=== PATIENT | female | born 1975 | race Caucasian/White ===

== ENCOUNTER 2016-03-28 13:07 | Emergency (ER) | payer OTHER ==
[2016-03-28] MEDS ORDERED: NS 0.9% 1000 ML* 1,000 ML IV ONE ×2 (13:21→13:49)
[2016-03-28] MEDS ORDERED: Acetaminophen TAB* 325 MG PO ONE (13:21)
[2016-03-28] MEDS ORDERED: oxyCODONE/Acetamin 5/325 MG* TAB PO ONE (14:17)
[2016-03-28 14:20] LABS: Hematocrit 26 % (35-47); Hemoglobin 8.2 g/dl (12.0-16.0); Mean Corpuscular HGB Conc 32 g/dl (31-36); Mean Corpuscular Hemoglobin 26 pg (27-31); Mean Corpuscular Volume 80 fL (80-97); Mean Platelet Volume 8 um3 (7.4-10.4); Red Blood Count 3.17 10^6/ul (4.0-5.4); Red Cell Distribution Width 15 % (10.5-15); White Blood Count 13.6 10^3/ul (3.5-10.8)
[2016-03-28 14:31] LABS: ALT 10 U/L (7-52); AST 16 U/L (13-39); Albumin 3.4 g/dL (3.2-5.2); Alkaline Phosphatase 118 U/L (34-104); Anion Gap 10 mmol/L (2-11); BUN/Creatinine Ratio 19.1 (8-20); Blood Urea Nitrogen 9 mg/dL (6-24); C Reactive Protein 75.58 mg/L (< 5.00); CO2 Carbon Dioxide 23 mmol/L (22-32); Chloride 97 mmol/L (101-111); EGFR African American 190.7 (>60); EGFR Non-African American 148.3 (>60); Globulin 3.2 g/dL (2-4); Glucose 83 mg/dL (70-100); Lipase < 10 U/L (11.0-82.0); Potassium 3.8 mmol/L (3.5-5.0); Sodium 130 mmol/L (133-145); Total Protein 6.6 g/dL (6.4-8.9)
[2016-03-28 15:40] VITALS: BP 110/60
--- NOTE | 2016-03-29 09:17 | ED ---
Olga Mena Matthew, scribed for Mahendra Walls MD on 03/28/16 at 1340 . Back Pain - HPI Summary HPI Summary: A 40 y/o 33 week female presents to the ED with sudden right hip pain since this morning. The pain started while the patient was getting out of bed. The pain is rated 10/10 in severity and does not radiate down the leg. The pain is worse with movement. Associated symptoms include numbness of the right greater toe. The patient denies trauma, fever, chills, urinary symptoms, diaphoresis, and vaginal bleeding. She has a Hx of back pain. PMHx of fibromyalgia. - History of Current Complaint Chief Complaint: EDBackInjuryPain Stated Complaint: HIP PAIN Time Seen by Provider: 03/28/16 13:20 Hx Obtained From: Patient Hx Last Menstrual Period: currently menstruating Onset/Duration: Sudden Onset, Lasting Hours, Still Present Onset/Duration: Started Hours Ago, Atraumatic, Still Present Timing: Constant Back Pain Location: Is Discrete @ - right hip Severity Initially: Moderate Severity Currently: Moderate Pain Intensity: 10 Pain Scale Used: 0-10 Numeric Aggravating Symptom(s): Movement Alleviating Symptom(s): Nothing Associated Signs And Symptoms: Positive: Numbness - right greater toe - Allergies/Home Medications Allergies/Adverse Reactions: Allergies Allergy/AdvReac Type Severity Reaction Status Date / Time Penicillins [PCN] Allergy Severe Hives Verified 03/04/16 17:27 Sulfamethoxazole Allergy Unknown Verified 03/04/16 17:27 w/Trimethoprim Reaction [From Bactrim] Details PMH/Surg Hx/FS Hx/Imm Hx Endocrine/Hematology History: Denies: Hx Diabetes Musculoskeletal History: Reports: Hx Fibromyalgia, Hx Scoliosis Neurological History: Reports: Hx Headaches - MIGRAINES, Other Neuro Impairments /Disorders - FIBROMAYALGIA Psychiatric History: Reports: Hx Anxiety, Hx Depression, Hx Post Traumatic Stress Disorder - per pt records, Hx Community Mental Health Tx - has seen therapist in the past, Hx Substance Abuse - pt notes remote hx of ETOH Infectious Disease History: No Infectious Disease History: Denies: History Other Infectious Disease, Traveled Outside the [place] in Last 30 Days - Family History Known Family History: Positive: Other - Fibromyalgia - Social History Alcohol Use: Rare Hx Substance Use: Yes - Hx drug abuse Substance Use Type: Reports: None, Prescribed Substance Use Comment - Amount & Last Used: pt takes reguarly scheduled dose prescribed by PCP Smoking Status (MU): Light Every Day Tobacco Smoker Type: Cigarettes Amount Used/How Often: 1/2 PPD Length of Time of Smoking/Using Tobacco: 20 YRS Have You Smoked in the Last Year: Yes Review of Systems Constitutional: Negative Negative: Fever, Chills, Skin Diaphoresis Eyes: Negative ENT: Negative Cardiovascular: Negative Respiratory: Negative Gastrointestinal: Negative Genitourinary: Negative Positive: no symptoms reported Positive: Myalgia - right hip pain Skin: Negative Positive: Numbness - right greater toe Positive: Anxious All Other Systems Reviewed And Are Negative: Yes Physical Exam - Summary Physical Exam Summary: GENERAL: Awake, alert, oriented, moderate distress, the patient is covered in pockmarks HEENT: Head is normocephalipolc, atraumatic, anicteric sclera, clear conjunctiva , mucous membranes moist, no erythema, no discharge, no lesions, neck is supple , trachea is midline, no JVD CARDIAC: Regular rhythm and tachycardic, S1, S2, no rub, no murmur, no gallop, 2 + radial and pedal pulses bilaterally RESPIRATORY: Clear to auscultation bilaterally with no rales, rhonchi, or wheezes, non-tender ABDOMEN: Bowel sounds positive, no bruit, soft, non-tender, no CVA tenderness EXTREMITIES: No edema, warm, dry, moving all extremities in a grossly normal manner, the patient has positional back pain, negative straight leg test, no tenderness to palpation, right lower back spasm, normal rectal tone NEUROLOGICAL: Mood is appropriate, moving all extremities in a grossly normal manner, sensation in the LE and normal DTR, normal strength Triage Information Reviewed: Yes Vital Signs On Initial Exam: Initial Vitals Temp Pulse Resp BP Pulse Ox 98.4 F 98 18 138/68 100 03/28/16 13:09 03/28/16 13:09 03/28/16 13:09 03/28/16 13:09 03/28/16 13:09 Vital Signs Reviewed: Yes Diagnostics - Vital Signs Vital Signs Temp Pulse Resp BP Pulse Ox 03/28/16 13:09 98.4 F 98 18 138/68 100 - Laboratory Lab Results: Lab Results 03/28/16 03/28/16 03/28/16 Range/Units 14:10 14:10 14:10 WBC 13.6 H (3.5-10.8) 10^3/ul RBC 3.17 L (4.0-5.4) 10^6/ul Hgb 8.2 L (12.0-16.0) g/dl Hct 26 L (35-47) % MCV 80 (80-97) fL MCH 26 L (27-31) pg MCHC 32 (31-36) g/dl RDW 15 (10.5-15) % Plt Count 318 (150-450) 10^3/ul MPV 8 (7.4-10.4) um3 Neut % (Auto) 88.4 H (38-83) % Lymph % (Auto) 5.8 L (25-47) % Holt % (Auto) 5.6 (1-9) % Eos % (Auto) 0 (0-6) % Baso % (Auto) 0.2 (0-2) % Absolute Neuts (auto) 12.0 H (1.5-7.7) 10^3/ul Absolute Lymphs (auto) 0.8 L (1.0-4.8) 10^3/ul Absolute Monos (auto) 0.8 (0-0.8) 10^3/ul Absolute Eos (auto) 0 (0-0.6) 10^3/ul Absolute Basos (auto) 0 (0-0.2) 10^3/ul Absolute Nucleated RBC 0 10^3/ul Nucleated RBC % 0 INR (Anticoag Therapy) 0.91 (0.89-1.11) Sodium 130 L (133-145) mmol/L Potassium 3.8 (3.5-5.0) mmol/L Chloride 97 L (101-111) mmol/L Carbon Dioxide 23 (22-32) mmol/L Anion Gap 10 (2-11) mmol/L BUN 9 (6-24) mg/dL Creatinine 0.47 L (0.51-0.95) mg/dL Est GFR ( Amer) 190.7 (>60) Est GFR (Non-Af Amer) 148.3 (>60) BUN/Creatinine Ratio 19.1 (8-20) Glucose 83 (70-100) mg/dL Lactic Acid (0.5-2.0) mmol/L Calcium 9.0 (8.6-10.3) mg/dL Total Bilirubin 0.40 (0.2-1.0) mg/dL AST 16 (13-39) U/L ALT 10 (7-52) U/L Alkaline Phosphatase 118 H (34-104) U/L C-Reactive Protein 75.58 H (< 5.00) mg/L Total Protein 6.6 (6.4-8.9) g/dL Albumin 3.4 (3.2-5.2) g/dL Globulin 3.2 (2-4) g/dL Albumin/Globulin Ratio 1.1 (1-3) Lipase < 10 L (11.0-82.0) U/L 03/28/16 Range/Units 14:10 WBC (3.5-10.8) 10^3/ul RBC (4.0-5.4) 10^6/ul Hgb (12.0-16.0) g/dl Hct (35-47) % MCV (80-97) fL MCH (27-31) pg MCHC (31-36) g/dl RDW (10.5-15) % Plt Count (150-450) 10^3/ul MPV (7.4-10.4) um3 Neut % (Auto) (38-83) % Lymph % (Auto) (25-47) % Holt % (Auto) (1-9) % Eos % (Auto) (0-6) % Baso % (Auto) (0-2) % Absolute Neuts (auto) (1.5-7.7) 10^3/ul Absolute Lymphs (auto) (1.0-4.8) 10^3/ul Absolute Monos (auto) (0-0.8) 10^3/ul Absolute Eos (auto) (0-0.6) 10^3/ul Absolute Basos (auto) (0-0.2) 10^3/ul Absolute Nucleated RBC 10^3/ul Nucleated RBC % INR (Anticoag Therapy) (0.89-1.11) Sodium (133-145) mmol/L Potassium (3.5-5.0) mmol/L Chloride (101-111) mmol/L Carbon Dioxide (22-32) mmol/L Anion Gap (2-11) mmol/L BUN (6-24) mg/dL Creatinine (0.51-0.95) mg/dL Est GFR ( Amer) (>60) Est GFR (Non-Af Amer) (>60) BUN/Creatinine Ratio (8-20) Glucose (70-100) mg/dL Lactic Acid 0.9 (0.5-2.0) mmol/L Calcium (8.6-10.3) mg/dL Total Bilirubin (0.2-1.0) mg/dL AST (13-39) U/L ALT (7-52) U/L Alkaline Phosphatase (34-104) U/L C-Reactive Protein (< 5.00) mg/L Total Protein (6.4-8.9) g/dL Albumin (3.2-5.2) g/dL Globulin (2-4) g/dL Albumin/Globulin Ratio (1-3) Lipase (11.0-82.0) U/L Result Diagrams: 03/28/16 14:10 03/28/16 14:10 Lab Statement: Any lab studies that have been ordered have been reviewed, and results considered in the medical decision making process. Back Pain Course/Dx - Course Course Of Treatment: 33 week female present with right positional back pain, no vag bleed or discharge, + movments, normal bowel and bladder habbits. nontender abd, no focal neuro deficits. abnormal hg, discussed with Dr. Arenas- he believes hg and crp are normal associated findings, encourage iron supplement. OB to follow closely - Diagnoses Provider Diagnoses: Anemia during , Back pain Discharge - Discharge Plan Condition: Stable Disposition: HOME Patient Education Materials: Anemia (ED), Back Pain (ED) Referrals: Laura Naidu MD [Primary Care Provider] - Radha Arenas MD [Medical Doctor] - Additional Instructions: Please follow-up with your primary care physician and [facility] in two days. The documentation as recorded by the Olga dahl Matthew accurately reflects the service I personally performed and the decisions made by me, Mahendra Walls MD.
== END 2016-03-28 15:39 | disposition home or self-care (01) ==
LOC: ED 13:07
DX: O99.013 Anemia complicating pregnancy, third trimester (principal); Z3A.33 33 weeks gestation of pregnancy; M54.9 Dorsalgia, unspecified; M25.551 Pain in right hip; R20.0 Anesthesia of skin
CPT/HCPCS: 36415; 80053; 83605; 83690; 85025; 85610; 86140; 96360; 99282; A9270-GY

== ENCOUNTER 2016-03-29 14:30 | Inpatient (IN) | payer OTHER ==
[2016-03-29 16:17] LABS: ROM Internal QC QC Line Present
[2016-03-29] MEDS ORDERED: Haloperidol TAB* 2 MG PO PRN (16:20)
--- NOTE | 2016-03-29 16:28 | PN ---
Progress Note - Progress Note Note: Received call from OBGYN doctor reporting of what appears to be tactile hallucinations in the context of Cocain withdrawal. Also requested a psychiatric consult when she is admitted to OBGYN/[facility] sometimes tomorrow.
[2016-03-29] MEDS ORDERED: Morphine VIAL* 10 MG/ML 1 ML VIAL IM ONE (17:45)
[2016-03-29] MEDS ORDERED: Morphine INJ* 10 MG/ML 1 ML CARPUJECT ONE (17:58)
[2016-03-29] MEDS ORDERED: Vancomycin(*) 1,000 MG in NS 0.9% 250 ML* 250 ML IVPB ONE (18:00)
[2016-03-29] MEDS ORDERED: Acetaminophen TAB* 325 MG ONE (18:44)
[2016-03-29] MEDS: Acetaminophen TAB* 325 MG PO PRN (18:46)
--- NOTE | 2016-03-29 19:04 | PN ---
Hospitalist Progress Note . HOSPITALIST PROCEDURE NOTE: CENTRAL LINE Discussed case at length with Dr. Arenas, OB-BLANKING PRESS OPERATOR Attending. Indication present for central line: multiple failed peripheral line attempts / no PICC service / urgent need for multiple IV agents, phlebotomy/blood cultures Discussed with patient, who agreed and consented based on risks & benefits explained. Labs reviewed (no coagulopathy noted). Materials collected and room set up Patient positioned and target site sterilized in the usual fashion with shoulders back and head down (reverse Trendelenburg position) Completed physician-led time out reviewing patient name, procedure, indications , laterality, goals, etc. Site anesthetized with 2% lidocaine in usual fashion Larger finder needle delivered deeper lidocaine and got drawback (flash) from L subclavian vein (characteristic deep red / venous color noted) Wire inserted by Seldinger technique. Opening cut with kit-blade (~5 mm) and SQ tissue dilated with kit-dilator. Triple lumen catheter (pre-flushed by dc) inserted over wire with low pressure blood return noted in all ports. Each port flushed and needle-less adaptors applied Line sutured in usual fashion and covered with tegaderm dressing. Stat CXR ordered to r/o pneumothorax and confirm proper line placement. No complications noted at the time of this note.
[2016-03-29 19:42] LABS: Hematocrit 23 % (35-47); Hemoglobin 7.6 g/dl (12.0-16.0); Mean Corpuscular HGB Conc 33 g/dl (31-36); Mean Corpuscular Hemoglobin 26 pg (27-31); Mean Corpuscular Volume 80 fL (80-97); Mean Platelet Volume 9 um3 (7.4-10.4); Red Blood Count 2.94 10^6/ul (4.0-5.4); Red Cell Distribution Width 16 % (10.5-15); White Blood Count 17.5 10^3/ul (3.5-10.8)
[2016-03-29 19:43] LABS: Add Diff/Slide Review? Slide Review Added; Comments Flag Yes
[2016-03-29 19:46] LABS: ALT 10 U/L (7-52); AST 18 U/L (13-39); Albumin 3.1 g/dL (3.2-5.2); Alkaline Phosphatase 119 U/L (34-104); Anion Gap 7 mmol/L (2-11); Blood Urea Nitrogen 5 mg/dL (6-24); CO2 Carbon Dioxide 21 mmol/L (22-32); Calcium 8.7 mg/dL (8.6-10.3); Chloride 96 mmol/L (101-111); EGFR African American 177.6 (>60); EGFR Non-African American 138.1 (>60); Globulin 3.2 g/dL (2-4); Glucose 125 mg/dL (70-100); Potassium 3.3 mmol/L (3.5-5.0); Sodium 124 mmol/L (133-145); Total Protein 6.3 g/dL (6.4-8.9)
[2016-03-29] MEDS ORDERED: NS 0.9% 1000 ML* 1,000 ML IV ONE (19:58)
[2016-03-29] MEDS ORDERED: cefTRIAXone(*) 2 GM in NS 0.9% 100 ML* 100 ML IVPB ONE (20:00)
[2016-03-29 20:03] LABS: Alcohol < 10 mg/dL (<10)
--- NOTE | 2016-03-29 20:24 | RAD ---
INDICATION: Central line placement. COMPARISON: None TECHNIQUE: An AP semierect portable view obtained at 1942 hours is submitted. FINDINGS: Bones/Soft Tissues: There are no acute bony findings. There is a left-sided central venous catheter terminating in the superior vena cava. There is no pneumothorax Cardiomediastinal: The cardiomediastinal silhouette is normal. Lungs: There are no infiltrates. There is no pneumothorax. Incidental note is made of an azygos fissure. Pleura: There are no pleural effusions. Other: None IMPRESSION: LEFT CENTRAL VENOUS CATHETER TERMINATING IN THE SUPERIOR VENA CAVA. LUNGS CLEAR. NO PNEUMOTHORAX.
--- NOTE | 2016-03-29 20:24 | RAD ---
INDICATION: Third trimester . Possible septic right hip COMPARISON: None TECHNIQUE: Informed consent was obtained following explanation of risks and benefits of the procedure. Routine protocol was utilized with shielding. A radiation badge was placed on the patient. The right hip was marked on the skin surface and a routine timeout procedure called. The skin was prepped and draped in usual fashion. Following infiltration with lidocaine for local anesthesia a 22-gauge spinal needle was advanced into the joint space is confirmed using fluoroscopy/anatomic landmarks. A small amount sterile saline was injected in the joint space and aspirated. The aspirate was blood tinged. There is no odor or purulent material identified on inspection at the bedside. This fluid was then sent for Gram stain and C and S. The patient tolerated the procedure well. There are no procedural complications. 1 seconds of fluoroscopy was utilized. IMPRESSION: RIGHT HIP JOINT ASPIRATION WAS PERFORMED. CPT II Codes: 6045F PQRS (Fluoro time doc)
[2016-03-29 20:53] LABS: Benzodiazepine Urine Screen None Detected (None Detect)
[2016-03-29] MEDS: KCL 20 MEQ/100 ML IVPREMIX* 20 MEQ/100 ML BAG IV SCH ×2 (20:55→23:05)
[2016-03-29] MEDS: Morphine INJ* 2 MG/ML 1 ML CARPUJECT IV PRN ×2 (21:25→23:35)
--- NOTE | 2016-03-29 22:15 | CONS ---
CONSULTATION REPORT: DATE OF CONSULTATION: 03/29/16 - ROOM #109 TIME OF CONSULTATION: 5 p.m. REQUESTING PHYSICIAN: Radha Arenas MD REASON FOR CONSULTATION: Suspected right septic hip. HISTORY OF PRESENT ILLNESS: Ms. Reynolds is a 40-year-old female who is 33 weeks and complains of acute right hip pain. The patient was seen in the emergency room yesterday and discharged. She had progressive left hip pain and re- presented with more obvious hip pain characteristic of perhaps a septic hip. Complicating the situation was the patient's ongoing intravenous drug use most recently that day prior to admission and I believe she was injecting cocaine. The patient presents now with low-grade fever, which has been increasing during my evaluation and focal right hip joint pain. The patient has a very tenuous IV access, is in such pain that she cannot provide a clear history. She is accompanied by her mother who states that the hip pain started when she went to cross her legs a day ago and it has progressively gotten worse. Of some concern is the patient's white blood cell count from 03/28/16, which shows a white blood cell count of 13,6K with 88% neutrophils as well as CRP of 75. The patient is not on antibiotics, she has not undergone any hip imaging. The hospitalist service was consulted for further recommendations and assistance in management. PAST MEDICAL HISTORY: Fibromyalgia. ALLERGIES: PENICILLIN/SULFAMETHOXAZOLE with TRIMETHOPRIM (BACTRIM). FAMILY HISTORY: Reviewed but noncontributory. SOCIAL HISTORY: Positive for illicit drug use. Current toxicology is pending but the patient has confirmed cocaine use to the OB team. She has several other children. REVIEW OF SYSTEMS: Positive for fibromyalgia. No history of significant sciatica. No recent hip trauma. No recent falls. PHYSICAL EXAMINATION: On admission, Vital Signs: Temperature initially 103 degrees Fahrenheit, repeat temperature while I was examining the patient was 103. The patient is in significant pain. She is awake, alert, and oriented but not communicative secondary to her exquisite pain. HEENT: Oropharynx is clear. Mucous membranes are moist. Neck: Supple. No elevated JVD. Chest: Clear breath sounds anteriorly and posteriorly. Heart: Tachycardic but no murmurs appreciated. Abdomen is gravid with no organomegaly appreciated but exam difficult secondary to state. Skin: Livedo reticularis noted on lower extremities. Red, somewhat swollen left hip - subjective and difficult to assess on the right side relative to the left. No leg length discrepancy noted. Abduction of the right leg was difficult and the patient did not permit secondary to pain level. Flexion was possible to 10 to 15 degrees, approximately. She has got goo dorsiflexion strength at both ankles and her sensation was intact bilaterally. There was exquisite pain when I touched her hip joint laterally (on the right). I note she was wearing a monitor during the exam. Admission data is largely pending. Blood work was unable to be obtained prior to my evaluation secondary to difficult for overall access despite multiple nursing attempts by different nursing departments at [facility]. IMPRESSION AND RECOMMENDATIONS: Ms. Reynolds is a 40-year-old female, active injection drug use, 33 weeks who has strong likelihood of a right septic hip. The patient has 103 degrees fever as Iexamine her. She has leukocytosis as of yesterday's labs with left shift. She has an elevated CRP. Certainly, she has an infection at play somewhere and given her right hip pain and use of injection drugs, this is worrisome for septic hip. Differential diagnosis is broad, however, and includes endocarditis, epidural abscess and other infections associated with injection drug use. The patient should have her right hip aspirated. Urgent request for radiology guided aspiration is made and that is underway. The patient is going to have urgent central line access during which time she will have an array of lab work accomplished including a CBC, complete metabolic panel, lactic acid, coagulation parameters and so on. The fluid aspirated from her hip will be sent for Gram stain and culture and the patient will receive 6 mg IM morphine now and then IV doses as per the OB team. I informally spoke with Dr. Audrey Gordon who is aware of the patient and a formal ortho consultation will be arranged following the hip aspiration and depending on the fluid characteristics, decisions will be made relative to the need for surgery. With respect to her obstetric situation, I will defer to the OB attending, of course. However, it seems reasonable that if her right hip is floridly infected that she should proceed to surgery and there would not be a contraindication to that from a medical perspective and I will defer to the obstetric considerations if that is needed. The patient is full code. The patient is hemodynamically stable. If there are any signs of severe sepsis , the patient should be moved to the ICU and that was discussed with Dr. Arenas. Right now, I think she is safe on the OB floor, especially if she receives antibiotics imminently. With respect to antibiotics, I have ordered 1 g of vancomycin and 2 g of ceftriaxone to be given following the hip aspiration. This is broad coverage - - including MRSA -- and further antibiotic tailoring will be arranged by the ID cosmetic sales consultant tomorrow morning. Recommend aggressive fluid resuscitation starting with normal saline 1 L bolus followed by 150 cc per hour. Monitor urine output. Follow renal function. TIME SPENT: Total time taken to evaluate Ms. Reynolds was 75 minutes, greater than half the time spent at the bedside going over the clinical situation and communicating my recommendations. I was present alongside of Dr. Radha Arenas and worked in conjunction with him and he is aware of all of these recommendations. Thank you for the opportunity to help Ms. Reynolds in this serious situation. The hospitalist team will continue to follow the patient. We will arrange ID and intensive care unit consultations as need be in the next 24 hours and feel free to call us liberally as needed. [id number]/[facility] #: [id number] [facility] CENTERAmisha
[2016-03-29 22:41] LABS: Budding Yeast Present (Absent); Urine Bacteria Absent (Absent); Urine Bilirubin Negative (Negative); Urine Glucose Negative (Negative); Urine Nitrite Negative (Negative)
[2016-03-30] MEDS: Acetaminophen TAB* 325 MG PO PRN ×2 (00:34→09:41)
[2016-03-30] MEDS: NS 0.9% 1000 ML* 1,000 ML IV SCH ×2 (01:11→07:23)
[2016-03-30] MEDS: Morphine INJ* 2 MG/ML 1 ML CARPUJECT IV PRN ×8 (01:12→14:12)
[2016-03-30] MEDS: KCL 20 MEQ/100 ML IVPREMIX* 20 MEQ/100 ML BAG IV SCH (01:52)
[2016-03-30 06:16] LABS: Hematocrit 22 % (35-47); Hemoglobin 7.1 g/dl (12.0-16.0); Mean Corpuscular HGB Conc 33 g/dl (31-36); Mean Corpuscular Hemoglobin 26 pg (27-31); Mean Corpuscular Volume 80 fL (80-97); Mean Platelet Volume 8 um3 (7.4-10.4); Red Blood Count 2.72 10^6/ul (4.0-5.4); Red Cell Distribution Width 16 % (10.5-15); White Blood Count 13.2 10^3/ul (3.5-10.8)
[2016-03-30 06:37] LABS: Albumin 2.7 g/dL (3.2-5.2); BUN/Creatinine Ratio 7.7 (8-20); Calcium 8.3 mg/dL (8.6-10.3); EGFR African American 169.7 (>60); Globulin 2.8 g/dL (2-4); Potassium 3.3 mmol/L (3.5-5.0); Total Bilirubin 0.3 mg/dL (0.2-1.0); Total Protein 5.5 g/dL (6.4-8.9)
[2016-03-30] MEDS ORDERED: Vancomycin(*) 1,000 MG in NS 0.9% 250 ML* 250 ML IVPB ONE (07:45)
[2016-03-30] MEDS ORDERED: CEFTRIAXONE IVPB SCH (08:00)
[2016-03-30] MEDS ORDERED: NS 0.9% IVPB SCH (08:00)
[2016-03-30 08:10] VITALS: BP 135/78
[2016-03-30] MEDS ORDERED: Vancomycin per Pharmacy* NOTE FOLLOW UP PRN (09:25)
--- NOTE | 2016-03-30 09:27 | RAD ---
Indication: Right hip and lower extremity pain. Duplex Doppler sonography of the deep venous system of the right lower extremity deep venous system was performed. Bilaterally the common femoral veins appear patent and compressible. Right proximal greater saphenous vein, proximal deep femoral vein, femoral vein, popliteal vein, posterior tibial veins and peroneal veins appear patent and compressible. IMPRESSION: NO EVIDENCE OF DEEP VENOUS THROMBOSIS IS IDENTIFIED.
--- NOTE | 2016-03-30 09:56 | ECHO ---
Patient: AZAEL FISHER [facility] Rec#: [id number] : 1975 Date: 03/30/2016 Age: 40y Height: 167.6 cm / 66.0 in Weight: 68 kg / 149.9 lbs Sex: F BSA: 1.77 Room#: 109 Admit Date#: 03/29/2016 Type: Inpatient Referring: Wicho Mo MD Reading: Christian Dorsey DO Rn Endocrinology: Paulette Allison RN RDCS CC: Laura Naidu MD Transthoracic Echocardiogram Indication: Fever, sepsis BP: 137/82 HR: 122 Rhythm: Tachycardia Findings History: IVDA, fibromyalgia, 33 weeks , suspected septic right hip Technical Comments: The study quality is fair. Left Ventricle: The left ventricular chamber size is normal. Mild concentric left ventricular hypertrophy is observed. Global left ventricular wall motion and contractility are within normal limits. There is normal left ventricular systolic function. The estimated ejection fraction is 50-55%. There is no consistent Doppler evidence of clinically significant diastolic dysfunction. Left Atrium: The left atrium is mildly dilated. Right Ventricle: The right ventricular chamber size and systolic function are within normal limits. Right Atrium: The right atrial cavity size is normal. Aortic Valve: The aortic valve is trileaflet. There is no evidence of aortic regurgitation. There is no evidence of aortic stenosis. Mitral Valve: The mitral valve appears normal in structure and function. There is mild to moderate mitral regurgitation. The mechanism is not well appreciated on transthoracic imaging. There is no evidence of mitral stenosis. Tricuspid Valve: The tricuspid valve leaflets are moderately thickened.of the anterior leaflet in some views. There is trace to mild tricuspid regurgitation. Unable to estimate the right ventricular systolic pressure. Pulmonic Valve: The pulmonic valve appears normal. There is a trace pulmonic regurgitation. There is no pulmonic stenosis. Pericardium: There is no significant pericardial effusion. Aorta: There is no dilatation of the ascending aorta. There is no dilatation of the aortic arch. The aortic root is normal in size. Pulmonary Artery: The main pulmonary artery is not well visualized. Venous: The inferior vena cava appears normal in size. There is a greater than 50% respiratory change in the inferior vena cava dimension. Conclusions The left ventricular chamber size is normal. Mild concentric left ventricular hypertrophy is observed. There is normal left ventricular systolic function with an estimated LV ejection fraction of 50-55%. The left atrium is mildly dilated. The right ventricular chamber size and systolic function are within normal limits. There is mild to moderate mitral regurgitation. The mechanism is not well appreciated on transthoracic imaging. The anterior tricuspid valve leaflets/subvalvular apparatus appears moderately thickened in some views. There is no more than trace to mild tricuspid valve regurigation. No prior studies available for comparison at time of interpretation. Ability to estimate LVEF and valvular dysfunction limited by tachycardia at time of examination. Measurements Name Value Normal Range RVDdMajor (2D) 3.4 cm (2.2 - 4.4) RAd ISD 4CH 4.2 cm (3.4 - 4.9) RA (A4C)W 3.4 cm (2.9 - 4.6) IVSd (2D) 1.1 cm (0.6 - 1) LVPWd (2D) 1.1 cm (0.6 - 1) LVIDd (2D) 5.2 cm (3.6 - 5.4) LVIDs (2D) 3.8 cm - LV FS (2D) 27 % (25 - 45) Aortic Annulus 1.7 cm (1.4 - 2.6) Ao root diameter (2D) 2.2 cm (2.1 - 3.5) Ascending Ao 3 cm (2.1 - 3.4) Aortic arch 2.4 cm (1.8 - 3.4) LA dimension (AP) 2D 3.4 cm (2.3 - 3.8) LAd ISD 4CH 4.8 cm (2.9 - 5.3) LA ISD 4CH W 4.9 cm (2.5 - 4.5) Name Value Normal Range LA ESV SP 4CH (A/L) 60 ml - LA ESV SP 2CH (A/L) 60 ml - LA ESV BP (A/L) 63 ml - LA ESV BP (A/L) index 35.7 ml/m2 - LA ESV SP 4CH (MOD) 59 ml - LA ESV SP 2CH (MOD) 59 ml - Name Value Normal Range MV E-wave Vmax 1.7 m/sec - MV deceleration time 163 msec - MV A-wave Vmax 1.6 m/sec - MV E:A ratio 1 ratio - LV lateral e' Vmax 0.11 m/sec - LV E:e' lateral ratio 15.4 ratio - Name Value Normal Range AV Vmax 2.5 m/sec - AV VTI 39 cm - AV peak gradient 25 mmHg - AV mean gradient 15 mmHg - LVOT diameter 1.8 cm - LVOT Vmax 2.2 m/sec - LVOT VTI 31 cm - BANDAR (continuity Vmax) 2.2 cm2 - BANDAR (continuity VTI) 2 cm2 - Name Value Normal Range MV Vmax 2.1 m/sec - MV VTI 38 cm - MV peak gradient 17 mmHg - MV mean gradient 8 mmHg - MV PHT 44 msec - MVA (PHT) 5 cm2 - MVA (continuity VTI) 2 cm2 - Name Value Normal Range IVC diameter 2.1 cm - Name Value Normal Range PV Vmax 1.4 m/sec -
[2016-03-30 13:24] LABS: Body Fluid Appearance Cloudy
[2016-03-30 13:39] LABS: Body Fluid WBC 199 /mcL
[2016-03-30 13:54] LABS: Body Fluid Total Cells Counted 100
--- NOTE | 2016-03-30 14:10 | CONS ---
CONSULTATION REPORT: DATE OF CONSULT: 03/30/16 REQUESTING PHYSICIAN: Dr. Mo. CONSULTING SERVICE: Infectious Disease. REASON FOR CONSULT: Sepsis in . IMPRESSION: 1. One-week right hip pain, pain worse with weightbearing, few days of fevers, chills, and sweats, gram-positive cocci in 1/2 blood culture bottles, PCR pending, with fever, tachycardia, tachypnea, hypoxia. Transthoracic echocardiogram shows thickening of the tricuspid valve. She has severe hip pain with tenderness over the gluteus muscle. She had an aspiration of the hip joint last night which was dry, so I do not think there is a septic hip. She could have a gluteal muscle abscess or septic myositis. She has a right knee small effusion, I am not entirely sure if she has a septic knee, but it is on the differential. With the tricuspid valve thickening and if it ends up being staphylococcus aureus in the blood, she could have a tricuspid valve endocarditis as well. She is hypoxic. Her chest x-ray yesterday showed clear lungs. Developing septic pulmonary emboli would be a consideration if there is tricuspid valve endocarditis. 2. 33 weeks' gestation 3. Injection drug use, in brief remission. 4. PENICILLIN allergy caused hives, tolerating ceftriaxone. RECOMMENDATION: Agree with vancomycin goal trough 15 to 20 and ceftriaxone can decrease to 2 g once a day. We will await the blood culture and PCR from the blood culture as well. Dr. Espino is talking with the [facility] at [facility] for a transfer. If she is not transferred, the next step in evaluation would be an MRI of the pelvis and a transesophageal echocardiogram and aspiration of the right knee joint. HISTORY OF PRESENT ILLNESS: This is a 40-year-old woman with 33 weeks' gestation admitted with right hip pain and fever. She says she was well until about a week ago. She developed a sudden-onset right hip pain which is worse with weightbearing, hard to move, it is worse with movement in bed as well. Three to four days ago, she developed fever, chills, and sweats as well as anorexia. Because of those symptoms, she came into the ER yesterday where she was found to have leukocytosis of 17,000. Her temperature was 102.4. She was started on fluid and antibiotics. She was admitted to the OB floor. Because of severe right hip pain, Dr. Mo was asked to see her. He discussed with Radiology and had an IR- guided aspiration of the joint. There was no fluid obtained. Saline was instilled and reaspirated which showed 1+ neutrophils, no organisms, her cultures negative at 24 hours on essentially no antibiotics at that point. She has ongoing right hip pain which makes it hard for her to move in bed. She does not want to get up. Her right knee has been swollen and stiff for about a month. It comes and goes, swollen more for about a day or two and that seems to get better on its own. She does spend a fair amount of time outdoors, has had some tick bites. She has had no rashes. She has had ongoing fevers and worsening hypoxia. She is getting supplemental oxygen via face mask. She was tachycardic to the 160s, and now down to the 110s with fluids. PAST MEDICAL HISTORY: 1. Injection drug use. 2. Skin picking. 3. Fibromyalgia. MEDICATIONS: 1. Tylenol. 2. Haloperidol. 3. Ceftriaxone 2 g every 12 hours. 4. Vancomycin 1 g every 8 hours. ALLERGIES: PENICILLIN caused hives; BACTRIM, unknown reaction. FAMILY HISTORY: No recurrent infections. SOCIAL HISTORY: She lives in [place] with her sister's [id number]. She has used cocaine recently and injection drugs. She has no sick contacts. REVIEW OF SYSTEMS: All negative except as noted above. PHYSICAL EXAM: Vital Signs: Temperature 101.2, heart rate 120, respiratory rate 20, blood pressure 135/78, O2 sat 100%. General: She is awake and not in distress. Neurologically, she is oriented x3. Follows all commands. Moves all extremities. HEENT: There is no conjunctival hemorrhage. Oropharynx: Without lesions. Neck: Supple without nuchal rigidity. Lymph Nodes: There is no cervical, supraclavicular, inguinal, axillary, or epitrochlear lymphadenopathy. Heart is regular and tachycardic without murmurs. Lungs have decreased breath sounds at the bases bilaterally without wheezes or rales. Abdomen is gravid, is nontender. There are bowel sounds present. Skin: There is no rash or splinter hemorrhages. There are healed areas of skin picking throughout entire body. Musculoskeletal: There is no spine tenderness to palpation. There is right gluteal muscle and SI joint tenderness to palpation. There is no pain with right hip log roll, there is pain with flexion and extension, internal external rotation of the hip. Right knee, there is a small effusion with mild warmth, there is no erythema. There is no other joint synovitis. LABORATORY DATA: White blood cell count 13, hemoglobin 7, platelets 231. Creatinine is 0.5. ALT 12. Urine tox screen shows opiates and cocaine. Please see impressions and recommendations as outlined above which I have discussed with Dr. Espino. Thanks for asking me to see Ms. Reynolds in consultation. [id number]/[facility] #: [id number] MTDD
--- NOTE | 2016-03-30 15:40 | CONS ---
CONSULTATION REPORT: DATE: 03/30/2016. CHIEF COMPLAINT: Right lower extremity pain. HISTORY OF PRESENT ILLNESS: Roopa Reynolds is a 40-year-old woman who is 33 weeks' . Three days ago, she started having pain in her right lower extremity. She does not recall any injuries, she says it is hip pain. She was admitted to Labor and Delivery, unable to bear weight. She was seen by the hospitalist and apparently then taken to Radiology for a hip aspiration. This was done by Dr. Levy yesterday. It did not show return of any significant fluid, but with little fluid there was, was sent for Gram stain and no organisms were seen. The patient has been spiking fevers. She has a positive blood culture for staph. The aquatics director noticed that she had swelling in her knee and I was asked to evaluate the knee and the right lower extremity pain. The patient denies any groin pain. She does admit to low back pain. She denies any numbness or tingling in her right lower extremity. PHYSICAL EXAM: With range of motion of her hip, she complains of marked pain on the lateral aspect of her hip and in her buttock on the right side. With range of motion of her knee at flexion past 90 degrees, she complains of knee pain. She does not actively elevate her right leg when lying in bed because it is too painful. There is no evidence of fluid collection in the area of her tenderness which is on the lateral aspect of her hip and buttock area. There is no erythema or induration. Neurovascular function is intact in her right lower extremity. DIAGNOSTIC STUDIES: No films were done except for a spot film. When the patient was having the hip aspiration, it does not show any significant hip pathology. No other films were done. IMPRESSION: Sepsis with unknown source. PLAN: The patient's knee was aspirated after sterile prep and verbal consent and time-out. Obtained about 4 cc of clear fluid. There was no purulence. The fluid was sent for Gram stain, culture and sensitivity, and cell count, there was some blood tinge, but again no purulent material at all. The patient is being transferred to [facility] for further workup of her sepsis and I will see her in followup as needed. [id number]/[facility] #: [id number] [facility]
[2016-03-30] MEDS ORDERED: Vancomycin(*) 1,000 MG in NS 0.9% 250 ML* 250 ML IVPB SCH (16:00)
[2016-03-31] MEDS ORDERED: Vancomycin Trough Check NOTE FOLLOW UP ONE (07:30)
== END 2016-03-30 14:30 | disposition short-term general hospital (02) | DRG 566 ==
LOC: MCHOBOUT 14:30 → MCHOB 17:50
PROVIDERS: ADMIT Obstetrics & Gynecology; ATTEND Obstetrics & Gynecology
PROC: 4A1HXCZ Monitoring of Products of Conception, Cardiac Rate, External Approach (ICD-10-PCS; principal; 2016-03-29)
PROC: 02HV33Z Insertion of Infusion Device into Superior Vena Cava, Percutaneous Approach (ICD-10-PCS; 2016-03-29)
PROC: 0S993ZX Drainage of Right Hip Joint, Percutaneous Approach, Diagnostic (ICD-10-PCS; 2016-03-29)
PROC: 0S9C3ZX Drainage of Right Knee Joint, Percutaneous Approach, Diagnostic (ICD-10-PCS; 2016-03-30)
DX: O98.813 Other maternal infectious and parasitic diseases complicating pregnancy, third trimester (principal); A41.9 Sepsis, unspecified organism; O99.323 Drug use complicating pregnancy, third trimester; O26.893 Other specified pregnancy related conditions, third trimester; F14.23 Cocaine dependence with withdrawal; R44.2 Other hallucinations; M79.7 Fibromyalgia; R00.0 Tachycardia, unspecified; R06.82 Tachypnea, not elsewhere classified; R09.02 Hypoxemia; M25.461 Effusion, right knee; R63.0 Anorexia; D72.829 Elevated white blood cell count, unspecified; Z3A.33 33 weeks gestation of pregnancy; Z88.0 Allergy status to penicillin; Z88.1 Allergy status to other antibiotic agents; O09.523 Supervision of elderly multigravida, third trimester
CPT/HCPCS: 20610; 36415; 71010; 77002; 80053; 80307; 80320; 81003; 81015; 83605; 84112; 85025; 87040; 87070; 87077; 87150; 87186; 87205; 87640; 87641; 89051; 93005; 93306; A9270-GY; G0480; J0696; J2270; J3370; J3480

== ENCOUNTER 2016-09-26 23:40 | Emergency (ER) | payer OTHER ==
[2016-09-27] MEDS ORDERED: Ketorolac INJ* 60 MG/2 ML VIAL IM ONE (01:07)
[2016-09-27] MEDS ORDERED: Acetaminophen TAB* 325 MG PO ONE (01:08)
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
[2016-09-27] MEDS ORDERED: HYDROcodone/ACETAMIN 5-325 MG* 1 TAB PO ONE (02:21)
[2016-09-27 02:31] VITALS: BP 161/92
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
== END 2016-09-27 02:32 | disposition home or self-care (01) ==
LOC: ED 23:40
DX: S00.83XA Contusion of other part of head, initial encounter (principal); S40.022A Contusion of left upper arm, initial encounter; R51 Headache; R68.84 Jaw pain; Y04.2XXA Assault by strike against or bumped into by another person, initial encounter; Y93.9 Activity, unspecified; Y92.9 Unspecified place or not applicable; F41.9 Anxiety disorder, unspecified; F32.9 Major depressive disorder, single episode, unspecified; Z88.0 Allergy status to penicillin; Z88.2 Allergy status to sulfonamides; Z88.8 Allergy status to other drugs, medicaments and biological substances; F14.90 Cocaine use, unspecified, uncomplicated; F17.210 Nicotine dependence, cigarettes, uncomplicated
CPT/HCPCS: 70486; 93005; 96372; 99282; A9270-GY; J1885

== ENCOUNTER 2016-10-06 22:21 | Emergency (ER) | payer OTHER ==
[2016-10-07] MEDS ORDERED: Ketorolac INJ* 30 MG/ML 1 ML VIAL IV ONE (00:56)
[2016-10-07] MEDS ORDERED: NS 0.9% 1000 ML* 1,000 ML IV ONE (02:54)
[2016-10-07] MEDS ORDERED: Morphine INJ* 4 MG/ML 1 ML SYRINGE IV ONE (02:56)
[2016-10-07 03:38] LABS: Hematocrit 37 % (35-47); Hemoglobin 12.2 g/dl (12.0-16.0); Mean Corpuscular HGB Conc 33 g/dl (31-36); Mean Corpuscular Hemoglobin 28 pg (27-31); Mean Corpuscular Volume 87 fL (80-97); Mean Platelet Volume 8 um3 (7.4-10.4); Red Blood Count 4.28 10^6/ul (4.0-5.4); Red Cell Distribution Width 15 % (10.5-15); White Blood Count 10.5 10^3/ul (3.5-10.8)
[2016-10-07 03:54] LABS: Albumin 3.8 g/dL (3.2-5.2); EGFR African American 111.2 (>60); EGFR Non-African American 86.5 (>60); Globulin 2.8 g/dL (2-4); Potassium 4.2 mmol/L (3.5-5.0); Total Bilirubin 0.2 mg/dL (0.2-1.0); Total Protein 6.6 g/dL (6.4-8.9)
[2016-10-07 05:21] VITALS: BP 158/68
--- NOTE | 2016-10-07 05:49 | ED ---
Henna Mena Rebecca, scribed for Jabier Crowe MD on 10/07/16 at 0052 . HPI Chest Pain - HPI Summary HPI Summary: Pt is a 40 y/o F who presents to ED c/o CP. Pain began 4 days ago and is in the right anterior chest. Pain is present when she is laying flat, moving or breathing. When present, pain is severe, ranked 8/10 and characterized as sharp. Has not taken anything for the pain. Alleviated by sitting up. Additionally c/o nonproductive cough and wheezing. Denies rash, hemoptysis, edema, rhinorrhea, sore throat and abd pain. No prior similar episodes. No recent illness. PMHx HTN, endocarditis. FHx CAD. SHx smoking. - History of Current Complaint Chief Complaint: EDChestWallPain Time Seen by Provider: 10/07/16 00:36 Hx Obtained From: Patient Onset/Duration: Started Days Ago - 4 days ago, Still Present Current Severity: Severe Pain Intensity: 8 Pain Scale Used: 0-10 Numeric Chest Pain Location: Right Anterior Character: Sharp/Stabbing Aggravating Factor(s): Movement, Deep Breaths, Other: - Laying down Alleviating Factor(s): Upright Position Associated Signs and Symptoms: Positive: Nonproductive Cough, Wheezing. Negative: Hemoptysis - Allergy/Home Medications Allergies/Adverse Reactions: Allergies Allergy/AdvReac Type Severity Reaction Status Date / Time Penicillins [PCN] Allergy Severe Hives Verified 07/02/16 10:13 Milnacipran [From Savella] Allergy Unknown Verified 09/27/16 00:11 Reaction Details Pregabalin [From Lyrica] Allergy Swelling Verified 09/27/16 00:11 Sulfamethoxazole Allergy Unknown Verified 07/02/16 10:13 w/Trimethoprim Reaction [From Bactrim] Details PMH/Surg Hx/FS Hx/Imm Hx Endocrine/Hematology History: Denies: Hx Diabetes Cardiovascular History: Reports: Hx Hypertension, Other Cardiovascular Problems/ Disorders - Hx endocarditis Denies: Hx Pacemaker/ICD Respiratory History: Denies: Hx Asthma Musculoskeletal History: Reports: Hx Fibromyalgia, Hx Scoliosis, Other Musculoskeletal History - Osteomyelitis Sensory History: Denies: Hx Hearing Aid Neurological History: Reports: Hx Headaches - MIGRAINES, Other Neuro Impairments /Disorders - FIBROMAYALGIA Psychiatric History: Reports: Hx Anxiety, Hx Depression, Hx Post Traumatic Stress Disorder - per pt records, Hx Community Mental Health Tx - has seen therapist in the past, Hx Substance Abuse - pt notes remote hx of ETOH Denies: Hx Panic Disorder - Surgical History Surgery Procedure, Year, and Place: D&C ;. TUBES IN EARS ; Infectious Disease History: No Infectious Disease History: Denies: History Other Infectious Disease, Traveled Outside the [place] in Last 30 Days - Family History Known Family History: Positive: Cardiac Disease, Other - Fibromyalgia - Social History Alcohol Use: Daily Alcohol Amount: Drinks to excess frequently Hx Substance Use: Yes - Hx drug abuse Substance Use Type: Reports: Cocaine Substance Use Comment - Amount & Last Used: pt takes reguarly scheduled dose prescribed by PCP Smoking Status (MU): Heavy Every Day Tobacco Smoker Type: Cigarettes Amount Used/How Often: 1/2 PPD Length of Time of Smoking/Using Tobacco: 20 YRS Have You Smoked in the Last Year: Yes Review of Systems Negative: Sore Throat, Nasal Discharge Positive: Chest Pain Positive: Cough - nonproductive, Other - Wheezing; Denies hemoptysis Negative: Abdominal Pain Negative: Edema Negative: Rash All Other Systems Reviewed And Are Negative: Yes Physical Exam - Summary Physical Exam Summary: The patient is well-nourished in no acute distress and in no acute pain at rest. it hurts when she sits up. The skin is diaphoretic, warm and skin color reflects adequate perfusion. HEENT: The head is normocephalic and atraumatic. The pupils are equal and reactive. The conjunctivae are clear and without drainage. Nares are patent and without drainage. Mouth reveals moist mucous membranes and the throat is without erythema and exudate. The external ears are intact. The ear canals are patent and without drainage. The tympanic membranes are intact. Neck is supple with full range of motion and non-tender. NO subcutaneous air. Respiratory: Right reproducible chest pain. Lungs are clear to auscultation and breath sounds are symmetrical and equal. No rales, rhonchi or wheezing. Cardiovascular: Hear is regular rate and rhythm. There is no murmur or rub auscultated. There is no peripheral edema and pulses are symmetrical and equal. Abdomen: The abdomen is soft and non-tender. There are normal bowel sounds heard in all four quadrants and there is no organomegaly palpated. Musculoskeletal: There is no back pain noted. Extremities are non-tender with full range of motion. There is good capillary refill. There is no peripheral edema or calf tenderness elicited. Neurological: Patient is alert and oriented to person, place and time. The patient has symmetrical motor strength in all four extremities. Cranial nerves are grossly intact. Deep tendon reflexes are symmetrical and equal in all four extremities. Psychiatric: The patient has an appropriate affect and does not exhibit any anxiety or depression. Triage Information Reviewed: Yes Vital Signs On Initial Exam: Initial Vitals Temp Pulse Resp BP Pulse Ox 98.5 F 84 18 141/92 97 10/06/16 22:22 10/06/16 22:22 10/06/16 22:22 10/06/16 22:22 10/06/16 22:22 Vital Signs Reviewed: Yes - [place] Coma Scale Coma Scale Total: 15 Diagnostics - Vital Signs Vital Signs Temp Pulse Resp BP Pulse Ox 10/07/16 00:30 73 23 138/75 97 10/07/16 00:01 79 21 132/74 97 10/07/16 00:00 76 22 97 10/06/16 23:49 79 24 97 10/06/16 23:42 77 97 10/06/16 23:40 97.5 F 79 18 166/79 98 10/06/16 23:38 166/79 10/06/16 22:22 98.5 F 84 18 141/92 97 - Laboratory Lab Results: Lab Results 10/07/16 10/07/16 10/07/16 Range/Units 03:15 03:15 03:15 WBC 10.5 (3.5-10.8) 10^3/ul RBC 4.28 (4.0-5.4) 10^6/ul Hgb 12.2 (12.0-16.0) g/dl Hct 37 (35-47) % MCV 87 (80-97) fL MCH 28 (27-31) pg MCHC 33 (31-36) g/dl RDW 15 (10.5-15) % Plt Count 299 (150-450) 10^3/ul MPV 8 (7.4-10.4) um3 Neut % (Auto) 52.8 (38-83) % Lymph % (Auto) 40.7 (25-47) % [place] % (Auto) 5.3 (1-9) % Eos % (Auto) 1.1 (0-6) % Baso % (Auto) 0.1 (0-2) % Absolute Neuts (auto) 5.5 (1.5-7.7) 10^3/ul Absolute Lymphs (auto) 4.3 (1.0-4.8) 10^3/ul Absolute Monos (auto) 0.6 (0-0.8) 10^3/ul Absolute Eos (auto) 0.1 (0-0.6) 10^3/ul Absolute Basos (auto) 0 (0-0.2) 10^3/ul Absolute Nucleated RBC 0.01 10^3/ul Nucleated RBC % 0 D-Dimer, Quantitative < 200 (Less Than 230) ng/mL Sodium 138 (133-145) mmol/L Potassium 4.2 (3.5-5.0) mmol/L Chloride 109 (101-111) mmol/L Carbon Dioxide 22 (22-32) mmol/L Anion Gap 7 (2-11) mmol/L BUN 18 (6-24) mg/dL Creatinine 0.75 (0.51-0.95) mg/dL Est GFR ( Amer) 111.2 (>60) Est GFR (Non-Af Amer) 86.5 (>60) BUN/Creatinine Ratio 24.0 H (8-20) Glucose 99 (70-100) mg/dL Lactic Acid (0.5-2.0) mmol/L Calcium 9.0 (8.6-10.3) mg/dL Total Bilirubin 0.20 (0.2-1.0) mg/dL AST 12 L (13-39) U/L ALT 12 (7-52) U/L Alkaline Phosphatase 43 (34-104) U/L Troponin I 0.00 (<0.04) ng/mL B-Natriuretic Peptide ( - 100) pg/mL Total Protein 6.6 (6.4-8.9) g/dL Albumin 3.8 (3.2-5.2) g/dL Globulin 2.8 (2-4) g/dL Albumin/Globulin Ratio 1.4 (1-3) 10/07/16 10/07/16 Range/Units 03:15 03:15 WBC (3.5-10.8) 10^3/ul RBC (4.0-5.4) 10^6/ul Hgb (12.0-16.0) g/dl Hct (35-47) % MCV (80-97) fL MCH (27-31) pg MCHC (31-36) g/dl RDW (10.5-15) % Plt Count (150-450) 10^3/ul MPV (7.4-10.4) um3 Neut % (Auto) (38-83) % Lymph % (Auto) (25-47) % [place] % (Auto) (1-9) % Eos % (Auto) (0-6) % Baso % (Auto) (0-2) % Absolute Neuts (auto) (1.5-7.7) 10^3/ul Absolute Lymphs (auto) (1.0-4.8) 10^3/ul Absolute Monos (auto) (0-0.8) 10^3/ul Absolute Eos (auto) (0-0.6) 10^3/ul Absolute Basos (auto) (0-0.2) 10^3/ul Absolute Nucleated RBC 10^3/ul Nucleated RBC % D-Dimer, Quantitative (Less Than 230) ng/mL Sodium (133-145) mmol/L Potassium (3.5-5.0) mmol/L Chloride (101-111) mmol/L Carbon Dioxide (22-32) mmol/L Anion Gap (2-11) mmol/L BUN (6-24) mg/dL Creatinine (0.51-0.95) mg/dL Est GFR ( Amer) (>60) Est GFR (Non-Af Amer) (>60) BUN/Creatinine Ratio (8-20) Glucose (70-100) mg/dL Lactic Acid 1.1 (0.5-2.0) mmol/L Calcium (8.6-10.3) mg/dL Total Bilirubin (0.2-1.0) mg/dL AST (13-39) U/L ALT (7-52) U/L Alkaline Phosphatase (34-104) U/L Troponin I (<0.04) ng/mL B-Natriuretic Peptide 22 ( - 100) pg/mL Total Protein (6.4-8.9) g/dL Albumin (3.2-5.2) g/dL Globulin (2-4) g/dL Albumin/Globulin Ratio (1-3) Result Diagrams: 10/07/16 03:15 10/07/16 03:15 Lab Statement: Any lab studies that have been ordered have been reviewed, and results considered in the medical decision making process. - Radiology CXR Xray Interpretation: No Acute Changes Radiology Interpretation Completed By: ED Physician - EKG 2346 Cardiac Rate: NL - 75 bpm EKG Rhythm: Sinus Rhythm EKG Interpretation: No STEMI Re-Evaluation - Re-Evaluation First Eval Re-Evaluation Time: 02:50 Change: Unchanged Comment: Still in pain Second Eval Re-Evaluation Time: 04:45 Change: Improved Comment: Discussed CXR, EKG and lab results. Chest Pain Course/Dx - Course Assessment/Plan: Pt fabrizio 40 y/o F who presents to ED c/o right anterior CP for 4 days.Pain is present when she is laying flat, moving or breathing. When present , pain is severe, ranked 8/10 and characterized as sharp. Alleviated by sitting up. Additionally c/o nonproductive cough and wheezing. Denies rash, hemoptysis, edema, rhinorrhea, sore throat and abd pain. No prior similar episodes. No recent illness. PMHx HTN, endocarditis. FHx CAD. SHx smoking. Multiple RNs unable to obtian IV access or draw labs. CXR and EKG reveal no acute findings. Troponin of 0.00. D-Dimer <200. She will be D/C to home with Dx of pleurisy with an Rx for Percocet. She understands and agrees. - Chest Pain Differential Diagnosis/HQI/PQRI: Acute SC, Chest Wall, Lower Respiratory Infection, Pulmonary Embolism, Other: - pneumothorax, pneumonia, - Diagnoses Provider Diagnoses: Pleurisy Discharge - Discharge Plan Condition: Stable Disposition: HOME Prescriptions: oxyCODONE/Acetamin 5/325 MG* [Percocet 5/325 TAB*] 1 tab PO Q6H PRN #20 tab MDD 4 PRN Reason: pain Patient Education Materials: Pleurisy (ED) Referrals: Laura Naidu MD [Primary Care Provider] - 3 Days The documentation as recorded by the Henna dahl Rebecca accurately reflects the service I personally performed and the decisions made by me, Jabier Crowe MD.
--- NOTE | 2016-10-07 07:47 | RAD ---
HISTORY: Right-sided chest pain COMPARISONS: March 29, 2016 VIEWS: 4: Frontal dual-energy and lateral views of the chest. FINDINGS: CARDIOMEDIASTINAL SILHOUETTE: The cardiomediastinal silhouette is normal. FRANCISCO: The francisco are normal. PLEURA: The costophrenic angles are sharp. No pleural abnormalities are noted. LUNG PARENCHYMA: The lungs are clear. Bilateral nipple shadows are noted.. ABDOMEN: The upper abdomen is clear. There is no subphrenic gas. BONES AND SOFT TISSUES: No bone or soft tissue abnormalities are noted. OTHER: None. IMPRESSION: NO ACTIVE CARDIOPULMONARY DISEASE.
== END 2016-10-07 05:22 | disposition home or self-care (01) ==
LOC: ED 22:21
DX: R09.1 Pleurisy (principal); R05 Cough; I38 Endocarditis, valve unspecified; I10 Essential (primary) hypertension; G43.909 Migraine, unspecified, not intractable, without status migrainosus; Z88.0 Allergy status to penicillin; Z88.2 Allergy status to sulfonamides; F41.9 Anxiety disorder, unspecified; F32.9 Major depressive disorder, single episode, unspecified; F17.210 Nicotine dependence, cigarettes, uncomplicated
CPT/HCPCS: 36415; 71020; 80053; 83605; 83880; 84484; 85025; 85379; 93005; 96361; 96374; 96375; 99284; J1885; J2270

== ENCOUNTER 2016-11-05 15:51 | Emergency (ER) | payer OTHER ==
[2016-11-05] MEDS ORDERED: Tetan/Diph/Pertus SYR(Tdap)* 0.5 ML SYR(BOOSTRIX) use SYR IM ONE (17:22)
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
[2016-11-05 17:36] VITALS: BP 157/94
== END 2016-11-05 17:34 | disposition home or self-care (01) ==
LOC: ED 15:51
DX: S81.811A Laceration without foreign body, right lower leg, initial encounter (principal); X58.XXXA Exposure to other specified factors, initial encounter; Y93.9 Activity, unspecified; Y92.9 Unspecified place or not applicable; Z23 Encounter for immunization; I10 Essential (primary) hypertension; M79.7 Fibromyalgia; G43.909 Migraine, unspecified, not intractable, without status migrainosus; F41.9 Anxiety disorder, unspecified; F32.9 Major depressive disorder, single episode, unspecified; Z88.0 Allergy status to penicillin; Z88.2 Allergy status to sulfonamides; F14.90 Cocaine use, unspecified, uncomplicated; F17.210 Nicotine dependence, cigarettes, uncomplicated
CPT/HCPCS: 12002; 90471; 90715; 99281

== ENCOUNTER 2017-01-12 19:50 | Emergency (ER) | payer OTHER ==
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
--- NOTE | 2017-01-12 21:00 | RAD ---
INDICATION: Right rib pain COMPARISON: Chest x-ray October 07, 2016 TECHNIQUE: Multiple views of the ribs were obtained. FINDINGS: Bones: There is no evidence of acute rib fracture. LUNGS: The lungs are clear. There is no pneumothorax. Pleural spaces: There is no evidence of hemothorax. Other: None IMPRESSION: NO ACUTE RIB FRACTURE.
[2017-01-12] MEDS ORDERED: oxyCODONE/Acetamin 5/325 MG* TAB PO ONE (21:16)
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
[2017-01-12 21:55] VITALS: BP 128/72
== END 2017-01-12 21:50 | disposition home or self-care (01) ==
LOC: ED 19:50
DX: S09.90XA Unspecified injury of head, initial encounter (principal); S00.83XA Contusion of other part of head, initial encounter; S29.9XXA Unspecified injury of thorax, initial encounter; R51 Headache; R07.81 Pleurodynia; F17.210 Nicotine dependence, cigarettes, uncomplicated; Y09 Assault by unspecified means; Y93.9 Activity, unspecified; Y92.9 Unspecified place or not applicable
CPT/HCPCS: 70450; 70486; 99282; A9270-GY

== ENCOUNTER 2018-03-18 15:56 | Emergency (ER) | payer OTHER ==
[2018-03-18 16:19] VITALS: BP 143/92
--- NOTE | 2018-03-18 16:21 | UC ---
[facility] HPI - HPI Summary HPI Summary: 42 yo female presents with runny nose and dry cough for 3 days. Cough is getting worse and more frequency - difficulty sleeping due to cough. She has been taking theraflu with no relief. She also says that she has a broken tooth on her right lower side and the nerve is exposed - having significant pain here over the last few days. Is in the process of getting an appointment with her dentist. Denies fever, chills, SOB, rash. She is able to eat and drink, but has pain. - History of Current Complaint Chief Complaint: UCRespiratory Stated Complaint: COUGH,DENTAL Time Seen by Provider: 03/18/18 16:21 Hx Obtained From: Patient Hx Last Menstrual Period: 03/16/18 Onset/Duration: Gradual Onset Severity: Moderate Pain Intensity: 5 Pain Scale Used: 0-10 Numeric - Allergies/Home Medications Allergies/Adverse Reactions: Allergies Allergy/AdvReac Type Severity Reaction Status Date / Time milnacipran [From Savella] Allergy Unknown Verified 03/18/18 16:20 Reaction Details Penicillins Allergy Hives Verified 03/18/18 16:20 pregabalin [From Lyrica] Allergy Swelling Verified 03/18/18 16:20 Sulfa (Sulfonamide Allergy Unknown Verified 03/18/18 16:20 Antibiotics) Reaction Details Home Medications: Home Medications Acetaminophen [Tylophen] 500 mg PO 03/18/18 [History] D-Methorphan/PE/Acetaminophen [Theraflu Severe Cold Mult 20-10-500 mg] 1 marcelle PO 03/18/18 [History] Etonogestrel [Nexplanon] 68 mg IMPLANT 03/18/18 [History] Ibuprofen 800 mg PO 03/18/18 [History] PMH/Surg Hx/FS Hx/Imm Hx - Additional Past Medical History Additional PMH: None - Surgical History Surgical History: Yes Surgery Procedure, Year, and Place: D&C ;. TUBES IN EARS ; - Family History Known Family History: Positive: Cardiac Disease, Other - Fibromyalgia - Social History Occupation: Employed Full-time Lives: With Family Alcohol Use: Rare Alcohol Amount: Drinks to excess frequently Substance Use Type: None Substance Use Comment - Amount & Last Used: pt takes reguarly scheduled dose prescribed by PCP Smoking Status (MU): Light Every Day Tobacco Smoker Type: Cigarettes Amount Used/How Often: 1/2 PPD Length of Time of Smoking/Using Tobacco: 20 YRS Have You Smoked in the Last Year: Yes When Did the Patient Quit Smoking/Using Tobacco: POS PREG TEST Household Exposure Type: Cigarettes - Immunization History Most Recent Influenza Vaccination: n/a Most Recent Tetanus Shot: not sure thinks she is due for one Most Recent Pneumonia Vaccination: n/a Review of Systems All Other Systems Reviewed And Are Negative: Yes Constitutional: Positive: Negative Skin: Positive: Negative Eyes: Positive: Negative ENT: Positive: Dental Pain, Nasal Discharge Respiratory: Positive: Cough Cardiovascular: Positive: Negative Gastrointestinal: Positive: Negative Neurovascular: Positive: Negative Neurological: Positive: Negative Psychological: Positive: Negative Physical Exam - Summary Physical Exam Summary: GENERAL: NAD. WDWN. No pain distress. SKIN: No rashes, sores, lesions, or open wounds. HEENT: Head: AT/NC Eyes: EOM intact. Conjunctiva clear without inflammation or discharge. Ears: Hearing grossly normal. TMs intact, no bulging, erythema, or edema. Nose: Nasal mucosa pink and moist. NTTP maxillary and frontal sinus. Throat: Posterior oropharynx without exudates, erythema, or tonsillar enlargement. Uvula midline. NECK: Supple. Nontender. No lymphadenopathy. CHEST: CTAB. No r/r/w. No accessory muscle use. Breathing comfortably and in no distress. CV: RRR. Without m/r/g. Pulses intact. Cap refill <2seconds NEURO: Alert. PSYCH: Age appropriate behavior. Triage Information Reviewed: Yes Vital Signs: Initial Vital Signs Temp 97.3 F 03/18/18 16:13 Pulse 96 03/18/18 16:13 Resp 18 03/18/18 16:13 BP 143/92 03/18/18 16:13 Pulse Ox 97 03/18/18 16:13 Vital Signs Reviewed: Yes Dental: Positive: Percussion Tenderness @ - tooth 29, Gross Decay/Caries @ - throughout, Dental Fracture @ - Tooth 29. Negative: Abscess @, Cellulitis @, Cervical Lymphadenopathy, Bleeding Dental Complaint Course/Dx - Course Course Of Treatment: Suspect bronchitis/viral illness. No abscess appreciated at tooth. Rx for flonase, tessalon, and lidocaine viscous. F/u with dentist regarding tooth and with PCP if URI symptoms do not improve. - Differential Dx/Diagnosis Provider Diagnosis: Bronchitis, Tooth fracture Discharge - Sign-Out/Discharge Documenting (check all that apply): Patient Departure All imaging exams completed and their final reports reviewed: No Studies - Discharge Plan Condition: Stable Disposition: HOME Prescriptions: Benzonatate CAP* [Tessalon 100 MG CAP*] 100 mg PO TID PRN #21 cap PRN Reason: Cough Fluticasone NASAL SPRAY 50MCG* [Flonase NASAL SPRAY 50MCG*] 2 spray BOTH NARES DAILY #1 btl Lidocaine 2% VISCOUS* [Xylocaine 2% Viscous*] 15 ml SWISH SPIT Q6H PRN #300 ml PRN Reason: Pain Patient Education Materials: Rhinosinusitis (ED), Toothache (ED) Referrals: Laura Naidu MD [Primary Care Provider] - Additional Instructions: If you develop a fever, shortness of breath, chest pain, new or worsening symptoms - please call your PCP or go to the ED. Your blood pressure was high at todays visit. Please see your primary provider within 4 weeks for recheck and re-evaluation. - Billing Disposition and Condition Condition: STABLE Disposition: Home
== END 2018-03-18 16:40 | disposition home or self-care (01) ==
LOC: UCEAST 15:56
DX: S02.5XXA Fracture of tooth (traumatic), initial encounter for closed fracture (principal); J40 Bronchitis, not specified as acute or chronic; F17.210 Nicotine dependence, cigarettes, uncomplicated; Z88.0 Allergy status to penicillin; Z88.2 Allergy status to sulfonamides; Z88.8 Allergy status to other drugs, medicaments and biological substances; X58.XXXA Exposure to other specified factors, initial encounter; Y92.9 Unspecified place or not applicable
CPT/HCPCS: 99212; G0463

== ENCOUNTER 2018-12-05 16:43 | Emergency (ER) | payer OTHER ==
[2018-12-05 16:51] VITALS: BP 154/100
== END 2018-12-05 17:10 | disposition left against medical advice (07) ==
LOC: ED 16:43
DX: Z53.21 Procedure and treatment not carried out due to patient leaving prior to being seen by health care provider (principal); R56.9 Unspecified convulsions; Z88.0 Allergy status to penicillin; Z88.2 Allergy status to sulfonamides; Z88.8 Allergy status to other drugs, medicaments and biological substances
CPT/HCPCS: 99282

== ENCOUNTER 2019-02-08 10:39 | Observation (INO) | payer OTHER ==
--- NOTE | 2019-02-08 10:46 | ED ---
Abdominal Pain/Female - HPI Summary HPI Summary: Patient is a 43 y/o F presenting to the ED via EMS for a chief complaint of constant suprapubic abdominal pain that began one day ago. She rates the pain as 9/10 in severity. Per EMS, patient went to [facility] on 02/08[facility]19 and sent to [facility]. She also complains of nausea, but denies fever, chills, vomiting, diarrhea, constipation, diarrhea, dysuria, hematuria, or vaginal discharge. She is on her menstrual period and has vaginal bleeding which she says is constant despite having an implant. She denies similar abdominal pain in the past. One week ago, the patient was diagnosed with gonorrhea for which she has not received treatment. PMHx is significant for hypertension and hip osteomyelitis. PSHx is significant for a D&C, but she denies abdominal surgeries. Patient admits tobacco use and history of IV drug use, but denies alcohol use. She has not taken her medications as of 02/08/19. Medications reviewed. Allergies noted. - History of Current Complaint Stated Complaint: ABD PAIN PER EMS Hx Obtained From: Patient Hx Last Menstrual Period: 03/16/18 Onset/Duration: Sudden Onset, Lasting Hours, Still Present Timing: Hours Severity Initially: Severe Severity Currently: Severe Pain Intensity: 9 Pain Scale Used: 0-10 Numeric Location: Suprapubic Radiates: No Aggravating Factor(s): Nothing Alleviating Factor(s): Nothing Associated Signs and Symptoms: Positive: Vaginal Bleeding - On her menstrual period, Nausea. Negative: Fever, Constipation, Urinary Symptoms, Vaginal Discharge, Vomiting, Diarrhea Allergies/Adverse Reactions: Allergies Allergy/AdvReac Type Severity Reaction Status Date / Time milnacipran [From Savella] Allergy Unknown Verified 12/05/18 16:50 Reaction Details Penicillins Allergy Hives Verified 12/05/18 16:50 pregabalin [From Lyrica] Allergy Swelling Verified 12/05/18 16:50 Sulfa (Sulfonamide Allergy Unknown Verified 12/05/18 16:50 Antibiotics) Reaction Details Home Medications: Home Medications Cyanocobalamin TAB* [Vitamin B12 TAB*] 1,000 mcg PO DAILY 02/08/19 [History Confirmed 02/08/19] Escitalopram * [Lexapro *] 20 mg PO DAILY 02/08/19 [History Confirmed 02/08/19] Etonogestrel [Nexplanon] 68 mg SUBCUT ONCE 02/08/19 [History Confirmed 02/08/19] Hydrochlorothiazide TAB* [Hydrodiuril TAB*] 12.5 mg PO DAILY 02/08/19 [History Confirmed 02/08/19] Mupirocin 2% OINT* [Bactroban 2 % Oint*] 1 applic TOPICAL TID 02/08/19 [History Confirmed 02/08/19] PMH/Surg Hx/FS Hx/Imm Hx Previously Healthy: Yes Endocrine/Hematology History: Denies: Hx Diabetes Cardiovascular History: Reports: Hx Hypertension, Other Cardiovascular Problems/ Disorders - Hx endocarditis Denies: Hx Hypercholesterolemia, Hx Pacemaker/ICD Respiratory History: Denies: Hx Asthma Musculoskeletal History: Reports: Hx Fibromyalgia, Hx Scoliosis, Other Musculoskeletal History - Osteomyelitis Sensory History: Denies: Hx Legally Blind, Hx Deafness, Hx Hearing Aid Opthamlomology History: Denies: Hx Legally Blind EENT History: Denies: Hx Deafness Neurological History: Reports: Hx Headaches - MIGRAINES, Other Neuro Impairments /Disorders - FIBROMAYALGIA Psychiatric History: Reports: Hx Anxiety, Hx Depression, Hx Post Traumatic Stress Disorder - per pt records, Hx Community Mental Health Tx - has seen therapist in the past, Hx Substance Abuse - pt notes remote hx of ETOH Denies: Hx Panic Disorder - Surgical History Surgical History: Yes Surgery Procedure, Year, and Place: D&C ;. TUBES IN EARS Infectious Disease History: Denies: History Other Infectious Disease - Family History Known Family History: Positive: Cardiac Disease, Other - Fibromyalgia - Social History Occupation: Unemployed Lives: With Family Alcohol Use: Rare Alcohol Amount: Drinks to excess frequently Hx Substance Use: Yes - Hx drug abuse Substance Use Type: Reports: None Substance Use Comment - Amount & Last Used: pt takes reguarly scheduled dose prescribed by PCP Hx Tobacco Use: Yes Smoking Status (MU): Light Every Day Tobacco Smoker Type: Cigarettes Amount Used/How Often: 1/2 PPD Length of Time of Smoking/Using Tobacco: 20 YRS Have You Smoked in the Last Year: Yes Review of Systems Negative: Fever, Chills Positive: Abdominal Pain - Suprapubic, Nausea, Other - Negative constipation. Negative: Vomiting, Diarrhea Positive: other - Positive vaginal bleeding, on her menstrual period. Negative : dysuria, discharge - Vaginal, hematuria All Other Systems Reviewed And Are Negative: Yes Physical Exam - Summary Physical Exam Summary: Constitutional: Well-developed, Well-nourished, Alert. Moderate distress. HENT: Normocephalic; Atraumatic Eyes: Conjunctiva normal Neck: Musculoskeletal ROM normal neck. (-) JVD, (-) Stridor, (-) Tracheal deviation Cardio: Rhythm regular, rate normal, Heart sounds normal; Intact distal pulses; Radial pulses are 2+ and symmetric. (-) Murmur Pulmonary/Chest wall: Effort normal. (-) Respiratory distress, (-) Wheezes, (-) Rales Abd: Soft, (-) Distension, (-) Guarding, (-) Rebound. Diffusely tender, worse in the RLQ. 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 Mild blood in the vaginal vault, CMT but no Chandeliers sign, no adnexal tenderness. Triage Information Reviewed: Yes Vital Signs Reviewed: Yes Procedures - Sedation Patient Received Moderate/Deep Sedation with Procedure: No Diagnostics - Laboratory Result Diagrams: 02/08/19 11:21 02/08/19 11:21 Lab Statement: Any lab studies that have been ordered have been reviewed, and results considered in the medical decision making process. - Radiology Chest X-ray Radiology Interpretation Completed By: Radiologist Summary of Radiographic Findings: Chest X-ray IMPRESSION: NO ACTIVE CARDIOPULMONARY DISEASE IS NOTED. Reviewed by Dr. Menendez. - CT Abdomen/Pelvis CT CT Interpretation Completed By: Radiologist Summary of CT Findings: Abdomen/Pelvis CT IMPRESSION: There is some free fluid surrounding the right ovary. The appendix is normal. Fluid levels are noted in the distal small bowel and in the right colon suggestive of enteritis. Reviewed by Dr. Menendez. - EKG 10:51 Cardiac Rate: Tachycardia - 102 BPM EKG Rhythm: Sinus Tachycardia ST Segment: Normal Ectopy: None Summary of EKG Findings: EKG at 10:51 shows 102 BPM with sinus tachycardia, many baseline artefacts, no obvious STEMI. Reviewed and interpreted by Dr. Menendez. Re-Evaluation - Re-Evaluation First Eval Re-Evaluation Time: 11:24 Change: Unchanged Comment: At 11:24, patient is having an ultrasound and an IV line. Abdominal Pain Fem Course/Dx - Course Course Of Treatment: Patient is here with severe abdominal pain in the setting of known, untreated gonorrhea. Patient was diffusely tender but worse in the right lower quadrant. Patient had bloodwork performed which showed a leukocytosis of 19 and a normal lactate. Patient had a pelvic exam which showed CMT but no chandelier sign. Patient had a CT scan which showed fluid around the right ovary likely PID in nature. Patient was given cefoxitin and doxycycline. Patient was admitted to the gynecology service - Diagnoses Provider Diagnoses: PID (pelvic inflammatory disease), Fever, Leukocytosis, RLQ abdominal pain - Provider Notifications Discussed Care Of Patient With: Mahendra Barrera - At 13:24, I discussed the patients case with Dr. Barrera who will admit the patient with a diagnosis of leukocytosis, fever, RLQ abdominal pain, and PID. Time Discussed With Above Provider: 13:24 Instructed by Provider To: Admit As Inpatient Discharge ED - Sign-Out/Discharge Documenting (check all that apply): Patient Departure - Admit - Discharge Plan Condition: Stable Disposition: ADMITTED TO [facility] - Billing Disposition and Condition Condition: STABLE Disposition: Admitted to [facility] - Attestation Statements Document Initiated by Li: Yes Documenting Scribe: Kalina Garcia Provider For Whom Li is Documenting (Include Credential): Nathaniel Menendez MD Scribe Attestation: Kalina Mena, scribed for Nathaniel Menendez MD on 02/08/19 at 2025. Scribe Documentation Reviewed: Yes Provider Attestation: The documentation as recorded by the Kalina dahl accurately reflects the service I personally performed and the decisions made by , Nathaniel Menendez MD Status of Scribe Document: Viewed
[2019-02-08] MEDS ORDERED: Morphine 4 MG/ML VIAL (1 ml) 4 MG/ML VIAL IV ONE (10:47)
[2019-02-08] MEDS ORDERED: Ondansetron INJ* 2 MG/ML VIAL IV ONE (10:47)
[2019-02-08] MEDS ORDERED: NS 0.9% 1000 ML** 1,000 ML IV ONE (10:47)
[2019-02-08] MEDS ORDERED: Acetaminophen TAB* 325 MG PO ONE (10:47)
[2019-02-08 11:36] LABS: ABS Lymphocytes 0.9 10^3/ul (1.0-4.8); ABS Monocytes 0.3 10^3/ul (0-0.8); ABS Neutrophils 17.8 10^3/ul (1.5-7.7); Hematocrit 39 % (35-47); Lymphocyte % 4.9 %; Mean Corpuscular HGB Conc 33 g/dL (31-36); Mean Corpuscular Hemoglobin 29 pg (27-31); Mean Corpuscular Volume 89 fL (80-97); Mean Platelet Volume 8.3 fL (7.4-10.4); Platelet Count 285 10^3/uL (150-450); Red Blood Count 4.43 10^6 /uL (3.70-4.87); Red Cell Distribution Width 14 % (10-15); White Blood Count 19.1 10^3/uL (3.5-10.8)
[2019-02-08 11:53] LABS: ALT 12 U/L (7-52); AST 17 U/L (13-39); Albumin 4.3 g/dL (3.2-5.2); Albumin/Globulin Ratio 1.3 (1-3); Alkaline Phosphatase 59 U/L (34-104); Anion Gap 8 mmol/L (2-11); BUN/Creatinine Ratio 12.3 (8-20); Blood Urea Nitrogen 9 mg/dL (6-24); C Reactive Protein 174.58 mg/L (<8.01); CO2 Carbon Dioxide 26 mmol/L (22-32); Calcium 9.8 mg/dL (8.6-10.3); Chloride 98 mmol/L (101-111); EGFR African American 106.3 (>60); EGFR Non-African American 87.9 (>60); Globulin 3.4 g/dL (2-4); Glucose 106 mg/dL (70-100); Potassium 3.8 mmol/L (3.5-5.0); Sodium 132 mmol/L (135-145); Total Protein 7.7 g/dL (6.4-8.9)
[2019-02-08] MEDS ORDERED: HYDROmorphone INJ* 0.5 MG/0.5 ML SYRINGE IV ONE (11:56)
[2019-02-08] MEDS ORDERED: Iohexol 300* (CONTRAST) 10 ML SDV IV ONE (11:58)
[2019-02-08 12:01] LABS: HCG Pregnancy < 0.60 mIU/mL
[2019-02-08 12:25] LABS: INR 1.28 (0.82-1.09)
[2019-02-08] MEDS ORDERED: Ibuprofen TAB* 600 MG PO ONE (12:53)
[2019-02-08 13:01] LABS: Urine Appearance Cloudy; Urine Bilirubin Negative (Negative); Urine Blood 3+ (Negative); Urine Color Yellow; Urine Glucose Negative (Negative); Urine Ketones Trace (Negative); Urine Nitrite Negative (Negative); Urine Protein Negative (Negative); Urine Specific Gravity 1.021 (1.010-1.030); Urine Urobilinogen Negative (Negative)
[2019-02-08 13:05] LABS: Urine Bacteria Absent (Absent); Urine Red Blood Cell 3+(>10/hpf) (Absent); Urine Squamous Epithelial Cell Present (Absent); Urine White Blood Cell Trace(0-5/hpf) (Absent)
[2019-02-08] MEDS ORDERED: ceFOXitin 2 GM IVPREMIX* 2 GM/50 ML BAG IVPB ONE (13:05)
[2019-02-08] MEDS ORDERED: DOXYcycline IV* 100 MG in NS 0.9% 250 ML* 250 ML IVPB ONE (13:05)
[2019-02-08] MEDS ORDERED: Ketorolac INJ* 30 MG/ML 1 ML VIAL IV ONE (13:31)
[2019-02-08] MEDS ORDERED: Naloxone* 0.4 MG/ML 1 ML VIAL IV PUSH PRN (13:58)
[2019-02-08] MEDS ORDERED: Ondansetron INJ* 2 MG/ML VIAL IV PRN (14:04)
[2019-02-08] MEDS ORDERED: ETONOGESTREL 68 MG SUBCUT ONE (14:15)
[2019-02-08] MEDS ORDERED: HYDROmorphone PCA* 20 MG/20 ML PCA.SYRING PCA SCH (15:00)
[2019-02-08] MEDS: Lactated Ringers 1000 ML Bag* 1,000 ML IV SCH (15:47)
[2019-02-08] MEDS: ceFOXitin 2 GM IVPREMIX* 2 GM/50 ML BAG IVPB SCH (17:51)
[2019-02-08] MEDS: Mupirocin 2% OINT* TUBE TOPICAL SCH (22:58)
[2019-02-09] MEDS: ceFOXitin 2 GM IVPREMIX* 2 GM/50 ML BAG IVPB SCH ×4 (00:38→18:11)
[2019-02-09] MEDS: Lactated Ringers 1000 ML Bag* 1,000 ML IV SCH ×2 (05:39→15:28)
[2019-02-09 07:12] LABS: ABS Eosinophils 0.1 10^3/ul (0-0.6); ABS Lymphocytes 1.6 10^3/ul (1.0-4.8); ABS Monocytes 0.5 10^3/ul (0-0.8); ABS Neutrophils 19.9 10^3/ul (1.5-7.7); Eosinophil % 0.4 %; Hematocrit 34 % (35-47); Hemoglobin 11.3 g/dL (12.0-16.0); Lymphocyte % 7.3 %; Mean Corpuscular HGB Conc 33 g/dL (31-36); Mean Corpuscular Hemoglobin 30 pg (27-31); Mean Corpuscular Volume 91 fL (80-97); Mean Platelet Volume 8.6 fL (7.4-10.4); Platelet Count 244 10^3/uL (150-450); Red Blood Count 3.77 10^6 /uL (3.70-4.87); Red Cell Distribution Width 14 % (10-15); White Blood Count 22.2 10^3/uL (3.5-10.8)
[2019-02-09] MEDS ORDERED: Influenza VAC *QUAD* 2019-20* 0.5 ML SYRINGE IM ONE (09:00)
[2019-02-09] MEDS: Mupirocin 2% OINT* TUBE TOPICAL SCH ×3 (09:04→21:31)
[2019-02-09] MEDS: Hydrochlorothiazide TAB* 25 MG PO SCH (09:05)
[2019-02-09] MEDS: Ibuprofen TAB* 800 MG PO PRN ×2 (09:06→21:58)
[2019-02-09] MEDS: Escitalopram * 20 MG TABLET PO SCH (11:01)
--- NOTE | 2019-02-09 11:21 | PN ---
Progress Note - Progress Note Date of Service: 02/09/19 SOAP: Subjective: Pt is a 43 y/o female admitted to [facility] service for suspected PID, positive GC on recent culture. Initially with fever of 103.4 in ED at 103 on 02/08. Also elevated WBC of 19. Pt reports feeling much better today, has now been on IV Antiobiotics since yesterday afternoon. Pt requesting regular diet. Pain has been controlled with [facility]. Objective: [AVSS, afebrile, hemodynamically stable CV: RRR Pulm: non-labored respirations Abd: soft, nd, nttp, no rebound, no guarding] Assessment/plan: [43 y/o with PID, clinically responding well to IV Abx Has been afebrile x 24 hours now, will, continue IV Abx until afebrile x 48 hours. Elevated WBC count noted from 19 -->22.2. Pt is clinically improving though as exhibited by afebrile, benign abdominal exam and pt report of improved pain. Will need PO Doxy x 14 days when stable for discharge. Abdominal exam is benign, no concern for acute abdomen at this time Will DC [facility] and transition to PRN PO oxycodone, ibuprofen and tylenol. OK for regular diet Repeat CBC w/ diff tomorrow AM []
[2019-02-09] MEDS: oxyCODONE TAB* 5 MG TAB PO PRN ×3 (13:06→21:58)
[2019-02-09] MEDS: DOXYcycline IV* 100 MG in NS 0.9% 250 ML* 250 ML IVPB SCH (21:31)
[2019-02-10] MEDS: ceFOXitin 2 GM IVPREMIX* 2 GM/50 ML BAG IVPB SCH ×2 (02:02→08:10)
[2019-02-10] MEDS: Lactated Ringers 1000 ML Bag* 1,000 ML IV SCH (06:09)
[2019-02-10] MEDS: Hydrochlorothiazide TAB* 25 MG PO SCH (08:02)
[2019-02-10] MEDS: Escitalopram * 20 MG TABLET PO SCH (08:02)
[2019-02-10] MEDS: oxyCODONE TAB* 5 MG TAB PO PRN (08:03)
[2019-02-10] MEDS: Ibuprofen TAB* 800 MG PO PRN (08:03)
[2019-02-10] MEDS: DOXYcycline IV* 100 MG in NS 0.9% 250 ML* 250 ML IVPB SCH ×2 (08:03→10:08)
[2019-02-10] MEDS: Mupirocin 2% OINT* TUBE TOPICAL SCH (08:49)
[2019-02-10 09:02] LABS: Hematocrit 31 % (35-47); Hemoglobin 10.3 g/dL (12.0-16.0); Mean Corpuscular HGB Conc 33 g/dL (31-36); Mean Corpuscular Hemoglobin 29 pg (27-31); Mean Corpuscular Volume 88 fL (80-97); Red Blood Count 3.56 10^6 /uL (3.70-4.87); Red Cell Distribution Width 14 % (10-15); White Blood Count 11.3 10^3/uL (3.5-10.8)
[2019-02-10 09:22] LABS: ABS Basophils 0.1 10^3/ul (0-0.2); ABS Eosinophils 0.1 10^3/ul (0-0.6); ABS Lymphocytes 1.3 10^3/ul (1.0-4.8); ABS Monocytes 0.5 10^3/ul (0-0.8); ABS Neutrophils 9.2 10^3/ul (1.5-7.7); Eosinophil % 1.3 %; Lymphocyte % 11.8 %; Platelet Count 238 10^3/uL (150-450)
--- NOTE | 2019-02-10 10:44 | DS ---
DISCHARGE SUMMARY/DISCHARGE NOTE 43 y/o admitted for Pelvic inflammatory disease. On admission patient was febrile with a temperature of 103.4 and found to have a white count of 19. Outside testing was positive for Gonorrhea. Pt was admitted for IV therapy for Pelvic inflammatory disease. On Hospital Day #2 her WBC increased to 22.2, but her clinical presentation improved significantly. On Hospital Day #3 her WBC dropped down to 11 and and her clinical presentation continued to improve. She has remained afebrile x > 48 hours and has exhibited a good response to IV Cefoxitine and Doxycycline. O: AVSS, Afebrile, hemodynamically stable gen: NAD, aaox3 CV: RRR Pulm: CTABL Abd: soft, nd, nttp, no rebound, no guarding Ext: warm, nttp A/P 43 y/o with PID, good response to IV Abx therapy. - Will discharge home with PO Doxycycline 100mg BID x an additional 12 days of therapy for a total of 14 days of therapy. - Follow up in the office within 1-2 weeks Discharge Condition is Stable Prognosis is good Discharge to home Discharge Diagnosis - Gonorrhea, Pelvic Inflammatory disease with good response to IV Abx Anticipated time of discharge is 1230 DO KATHERINE Martinez
[2019-02-10 12:19] VITALS: BP 131/67
[2019-02-13 12:45] LABS: Chlamydia trachomatis NAA Negative (Negative)
[2019-02-13 15:28] LABS: Neisseria gonorrhoeae (GC) NAA Positive (Negative)
== END 2019-02-10 12:20 | disposition home or self-care (01) ==
LOC: ED 10:39 → SSU 13:56
PROVIDERS: ADMIT Obstetrics & Gynecology; ATTEND Obstetrics & Gynecology
DX: A54.24 Gonococcal female pelvic inflammatory disease (principal); N73.9 Female pelvic inflammatory disease, unspecified; N93.9 Abnormal uterine and vaginal bleeding, unspecified; I10 Essential (primary) hypertension; D72.829 Elevated white blood cell count, unspecified; R11.0 Nausea; R50.9 Fever, unspecified; Z97.5 Presence of (intrauterine) contraceptive device; R10.2 Pelvic and perineal pain; R51 Headache; F41.9 Anxiety disorder, unspecified; F32.9 Major depressive disorder, single episode, unspecified; F43.10 Post-traumatic stress disorder, unspecified; F17.210 Nicotine dependence, cigarettes, uncomplicated; Z23 Encounter for immunization; Z79.899 Other long term (current) drug therapy; Z88.0 Allergy status to penicillin
CPT/HCPCS: 36415; 71045; 74177; 80053; 81003; 81015; 83605; 84702; 85025; 85610; 86140; 87040; 87086; 87480; 87491; 87510; 87591; 90471; 90686; 93005; 96361; 96365; 96366; 96367; 96375; 96376; 99285; A9270-GY; G0008; G0378; J0694; J1170; J1885; J2270; J2405; Q9967

== ENCOUNTER 2019-05-01 23:38 | Emergency (ER) | payer SELFPAY ==
[2019-05-01] MEDS ORDERED: Ketorolac INJ* 30 MG/ML 1 ML VIAL IV PUSH ONE (23:54)
--- NOTE | 2019-05-01 23:59 | ED ---
HPI Chest Pain - HPI Summary HPI Summary: This pt is a 43 Y/O F presenting to [facility] with a CC of CP that radiates into her back and is described as pressure and is currently rated an 8/10 in severity. She states that she has had associated abdominal pain with a headache since the onset. She also reports a sore throat, chills, a diffuse rash, and diaphoresis. She states that she had to take a cold bath to alleviate any of her symptoms. She denies any fevers or SOB. She states no aggravating factors. She has a PMHx of HTN, endocarditis, and migraines. She reports a SHx of some cocaine use. - History of Current Complaint Chief Complaint: EDChestPainROMI Time Seen by Provider: 05/01/19 23:48 Hx Obtained From: Patient Hx Last Menstrual Period: 03/16/18 Onset/Duration: Started Hours Ago, Still Present Timing: Constant Initial Severity: Severe Current Severity: Severe Pain Intensity: 8 Pain Scale Used: 0-10 Numeric Chest Pain Location: Diffuse Chest Pain Radiates: Yes Chest Pain Radiates To:: Back Character: Pressure/Squeezing Aggravating Factor(s): Nothing Alleviating Factor(s): Other: - cold shower Associated Signs and Symptoms: Positive: Chest Pain, Chills, Diaphoresis, Abdominal Pain, Other: - diffuse rash. Negative: Shortness of Breath, Fever - Additional Pertinent History Primary Care Physician: [id number] - Allergy/Home Medications Allergies/Adverse Reactions: Allergies Allergy/AdvReac Type Severity Reaction Status Date / Time milnacipran [From Savella] Allergy Unknown Verified 05/02/19 01:41 Reaction Details Penicillins Allergy Hives Verified 05/02/19 01:41 pregabalin [From Lyrica] Allergy Swelling Verified 05/02/19 01:41 Sulfa (Sulfonamide Allergy Unknown Verified 05/02/19 01:41 Antibiotics) Reaction Details PMH/Surg Hx/FS Hx/Imm Hx Previously Healthy: Yes Endocrine/Hematology History: Denies: Hx Diabetes Cardiovascular History: Reports: Hx Hypertension, Other Cardiovascular Problems/ Disorders - Hx endocarditis Denies: Hx Hypercholesterolemia, Hx Pacemaker/ICD Respiratory History: Denies: Hx Asthma History: Reports: Other Problems/Disorders - UTI Denies: Hx Renal Disease Musculoskeletal History: Reports: Hx Fibromyalgia, Hx Scoliosis, Other Musculoskeletal History - Osteomyelitis Sensory History: Reports: Hx Contacts or Glasses Denies: Hx Legally Blind, Hx Deafness, Hx Hearing Aid Opthamlomology History: Reports: Hx Contacts or Glasses Denies: Hx Legally Blind Neurological History: Reports: Hx Headaches - MIGRAINES, Other Neuro Impairments /Disorders - FIBROMAYALGIA Psychiatric History: Reports: Hx Anxiety, Hx Depression, Hx Post Traumatic Stress Disorder - per pt records, Hx Community Mental Health Tx - has seen therapist in the past, Hx Substance Abuse - pt notes remote hx of ETOH Denies: Hx Panic Disorder - Surgical History Surgery Procedure, Year, and Place: D&C ;. TUBES IN EARS Infectious Disease History: No Infectious Disease History: Reports: Hx of Known/Suspected MRSA Denies: History Other Infectious Disease, Traveled Outside the [place] in Last 30 Days - Family History Known Family History: Positive: Cardiac Disease, Other - Fibromyalgia - Social History Occupation: Employed Part-time Lives: Alone Alcohol Use: Rare Alcohol Amount: Drinks to excess frequently Hx Substance Use: Yes - Hx drug abuse Substance Use Type: Reports: Cocaine Hx Tobacco Use: Yes Smoking Status (MU): Light Every Day Tobacco Smoker Type: Cigarettes Amount Used/How Often: 1/2 PPD Length of Time of Smoking/Using Tobacco: 20 YRS Have You Smoked in the Last Year: Yes Review of Systems Positive: Chills, Skin Diaphoresis. Negative: Fever Positive: Chest Pain Negative: Shortness Of Breath Positive: Rash - diffuse over body Negative: Headache All Other Systems Reviewed And Are Negative: Yes Physical Exam Triage Information Reviewed: Yes Vital Signs On Initial Exam: Initial Vitals Temp Pulse Resp BP Pulse Ox 97.7 F 68 15 197/115 99 05/01/19 23:48 05/01/19 23:48 05/01/19 23:48 05/01/19 23:48 05/01/19 23:48 Vital Signs Reviewed: Yes Procedures - Sedation Patient Received Moderate/Deep Sedation with Procedure: No Diagnostics - Vital Signs Vital Signs Temp Pulse Resp BP Pulse Ox 05/01/19 23:48 97.7 F 68 15 197/115 99 - Laboratory Result Diagrams: 05/01/19 01:30 Lab Statement: Any lab studies that have been ordered have been reviewed, and results considered in the medical decision making process. - EKG 2345 Cardiac Rate: NL - 66 BPM EKG Rhythm: Sinus Rhythm ST Segment: Normal Ectopy: None Summary of EKG Findings: NSR at 66 BPM, P waves, QRS complex, and T waves are within normal limits, T waves and intervals are normal, no ischemic changes. This is a normal EKG. Interpreted by Dr. Max at 0122 05/02/2019. Chest Pain Course/Dx - Course Course Of Treatment: This pt is a 43 Y/O F presenting to [facility] with a CC of CP that radiates into her back and is described as pressure. She states that she has had associated abdominal pain with a headache since the onset. She also reports a sore throat, chills, a diffuse rash, and diaphoresis. She states that she had to take a cold bath to alleviate any of her symptoms. She denies any fevers or SOB. Her PE found no acute abnormalities. NSR at 66 BPM, P waves, QRS complex, and T waves are within normal limits, T waves and intervals are normal, no ischemic changes. This is a normal EKG. She will be discharged home with a Dx of an allergic reaction. - Diagnoses Provider Diagnoses: Allergic reaction Discharge ED - Sign-Out/Discharge Documenting (check all that apply): Patient Departure - discharge - Discharge Plan Condition: Good Disposition: HOME Prescriptions: Loratadine [Claritin 10 MG CAP] 10 mg PO DAILY PRN #20 cap PRN Reason: Itching Patient Education Materials: General Allergic Reaction (ED) Referrals: Laura Naidu MD [Primary Care Provider] - 3 Days (if not improving) - Attestation Statements Document Initiated by Scribe: Yes Documenting Scribe: Radames Perdomo Provider For Whom Scribe is Documenting (Include Credential): Jeramie Max MD Scribe Attestation: Radames Mena, scribed for Jeramie Max MD on 05/02/19 at 0255. Status of Scribe Document: Ready
[2019-05-02] MEDS ORDERED: diPHENhydraMINE IV* 50 MG/ML 1 ml VIAL (BENADRYL) SLOW PUSH ONE (00:25)
[2019-05-02 02:04] LABS: CO2 Carbon Dioxide 24 mmol/L (22-32); Chloride 107 mmol/L (101-111); Potassium 3.8 mmol/L (3.5-5.0); Sodium 138 mmol/L (135-145)
[2019-05-02 02:05] LABS: Albumin 4.3 g/dL (3.2-5.2); Anion Gap 7 mmol/L (2-11); Calcium 9.3 mg/dL (8.6-10.3)
[2019-05-02 02:10] LABS: ALT 8 U/L (7-52); AST 15 U/L (13-39); Albumin/Globulin Ratio 1.7 (1-3); Alkaline Phosphatase 56 U/L (34-104); BUN/Creatinine Ratio 17.4 (8-20); Blood Urea Nitrogen 12 mg/dL (6-24); EGFR African American 113.4 (>60); EGFR Non-African American 93.8 (>60); Globulin 2.5 g/dL (2-4); Glucose 106 mg/dL (70-100); Total Protein 6.8 g/dL (6.4-8.9)
[2019-05-02 02:11] LABS: HCG Pregnancy < 0.60 mIU/mL
[2019-05-02 02:26] LABS: Influenza A Molecular Negative (Negative); Influenza B Molecular Negative (Negative)
[2019-05-02 03:00] VITALS: BP 174/105
== END 2019-05-02 02:58 | disposition home or self-care (01) ==
LOC: ED 23:38
DX: T78.40XA Allergy, unspecified, initial encounter (principal); G43.909 Migraine, unspecified, not intractable, without status migrainosus; I38 Endocarditis, valve unspecified; R07.9 Chest pain, unspecified; I10 Essential (primary) hypertension; F17.210 Nicotine dependence, cigarettes, uncomplicated; R21 Rash and other nonspecific skin eruption; X58.XXXA Exposure to other specified factors, initial encounter; Z88.0 Allergy status to penicillin; Z88.2 Allergy status to sulfonamides; Z79.899 Other long term (current) drug therapy
CPT/HCPCS: 36415; 71045; 80053; 84484; 84702; 93005; 96374; 96375; 99284; J1200; J1885

== ENCOUNTER 2019-07-07 12:12 | Emergency (ER) | payer SELFPAY ==
[2019-07-07 12:32] VITALS: BP 160/92
--- NOTE | 2019-07-07 13:13 | UC ---
Skin Complaint HPI - HPI Summary HPI Summary: PATIENT COMES IN WITH SEVERAL WEEKS OF A RASH ON HER SCALP WITH ASSOCIATED HAIR LOSS AND A SENSATION OF PRESSURE IN HER HEAD. STATES SHE HAS A HISTORY OF A SIMILAR RASH DIFFUSELY OVER HER BODY FOR THE PAST COUPLE OF YEARS. STATES HER PCP TOLD HER SHE HAD SCABIES BUT SHE DID NOT RECEIVE ANY TREATMENT. SHE THINKS SHE SAW SOMETHING MOVING UNDER HER SKIN. SHE ADMITS TO A HISTORY OF CHRONIC INTRANASAL COCAINE USE. STATES SHE USES WEEKLY WITH MOST RECENT USE 2 DAYS AGO. - History of Current Complaint Chief Complaint: UCSkin Time Seen by Provider: 07/07/19 12:25 Stated Complaint: HEAD COMPLAINT Hx Obtained From: Patient Hx Last Menstrual Period: 03/16/18 Onset/Duration: Gradual Onset, Lasting Weeks, Still Present Timing: Constant Onset Severity: Moderate Current Severity: Moderate Pain Intensity: 3 Pain Scale Used: 0-10 Numeric Location: Diffuse Alleviating Factor(s): Nothing Associated Signs & Symptoms: Positive: Rash - Allergy/Home Medications Allergies/Adverse Reactions: Allergies Allergy/AdvReac Type Severity Reaction Status Date / Time milnacipran [From Savella] Allergy Unknown Verified 07/07/19 12:16 Reaction Details Penicillins Allergy Hives Verified 07/07/19 12:16 pregabalin [From Lyrica] Allergy Swelling Verified 07/07/19 12:16 Sulfa (Sulfonamide Allergy Unknown Verified 07/07/19 12:16 Antibiotics) Reaction Details Home Medications: Home Medications Cyanocobalamin TAB* [Vitamin B12 TAB*] 1,000 mcg PO DAILY 02/08/19 [History Confirmed 07/07/19] Etonogestrel [Nexplanon] 68 mg SUBCUT ONCE 02/08/19 [History Confirmed 07/07/19] Mupirocin 2% OINT* [Bactroban 2 % Oint*] 1 applic TOPICAL TID 02/08/19 [History Confirmed 07/07/19] Hydrochlorothiazide TAB* [Hydrodiuril TAB*] 12.5 mg PO DAILY tab 02/10/19 [Rx Confirmed 07/07/19] Ibuprofen TAB* [Motrin TAB* 800 MG] 800 mg PO QID PRN tab 02/10/19 [Rx Confirmed 07/07/19] Loratadine [Claritin 10 MG CAP] 10 mg PO DAILY PRN #20 cap 05/02/19 [Rx Confirmed 07/07/19] Sertraline* [Zoloft*] 25 mg PO BEDTIME 07/07/19 [History Confirmed 07/07/19] PMH/Surg Hx/FS Hx/Imm Hx - Additional Past Medical History Additional PMH: FIBROMYALGIA Psychological History: Anxiety, Depression, Post Traumatic Stress Disorder - Surgical History Surgical History: None Surgery Procedure, Year, and Place: D&C ;. TUBES IN EARS - Family History Known Family History: Positive: Cardiac Disease, Other - Fibromyalgia - Social History Alcohol Use: None Alcohol Amount: Drinks to excess frequently Substance Use Type: Cocaine Substance Use Comment - Amount & Last Used: ocassional Smoking Status (MU): Light Every Day Tobacco Smoker Type: Cigarettes Amount Used/How Often: 1/2 PPD Length of Time of Smoking/Using Tobacco: 20 YRS Have You Smoked in the Last Year: Yes When Did the Patient Quit Smoking/Using Tobacco: POS PREG TEST Household Exposure Type: Cigarettes - Immunization History Most Recent Influenza Vaccination: 02/09/19 Most Recent Tetanus Shot: not sure thinks she is due for one Most Recent Pneumonia Vaccination: n/a Review of Systems All Other Systems Reviewed And Are Negative: Yes Constitutional: Positive: Negative Skin: Positive: Rash Respiratory: Positive: Negative Cardiovascular: Positive: Negative Gastrointestinal: Positive: Negative Musculoskeletal: Positive: Negative Physical Exam Triage Information Reviewed: Yes Appearance: Well-Appearing, No Pain Distress, Well-Nourished Vital Signs: Initial Vital Signs Temp 98.3 F 07/07/19 12:30 Pulse 81 07/07/19 12:30 Resp 16 07/07/19 12:30 BP 160/92 07/07/19 12:30 Pulse Ox 100 07/07/19 12:30 Vital Signs Reviewed: Yes Eyes: Positive: Conjunctiva Clear ENT: Positive: Hearing grossly normal Neck: Positive: Supple Respiratory: Positive: No respiratory distress, No accessory muscle use Cardiovascular: Positive: Pulses Normal Musculoskeletal: Positive: No Edema Neurological: Positive: Alert Psychological: Positive: Age Appropriate Behavior Skin: Positive: Rashes - EXCORIATED, SCABBED OVER LESIONS AND SCARRED, HEALED LESIONS <1CM, SCATTERED DIFFUSELY OVER TRUNK, ARMS, LEGS AND SCALP. NOT TENDER. NO FLUCTUANCE OR INDURATION. BROKEN HAIR FOLLICLES OVER AREAS OF RASH ON SCALP Course/Dx - Course Course Of Treatment: SUSPICIOUS FOR DERMATILLOMANIA GIVEN PATIENT'S CHRONIC COCAINE USE AND THE LONG- STANDING NATURE OF THIS RASH. SHE IS CONVINCED THERE IS SOMETHING ELSE GOING ON HOWEVER SO I HAVE REFERRED HER TO DERMATOLOGY FOR FURTHER EVALUATION. I SCHEDULED AN APPOINTMENT FOR HER THIS 07/10/2019 AT 8 AM. I ADVISED THE PATIENT TO CALL THEIR OFFICE TODAY TO DISCUSS ANY PAPERWORK THAT NEEDS TO BE COMPLETED BEFORE HER APPOINTMENT. SHE STATES SHE WILL CALL. DISCUSSED POSSIBILITY OF FUNGAL INFECTION. WILL HOLD OFF ON TREATMENT PENDING DERM EVALUATION. - Diagnoses Provider Diagnosis: Dermatillomania in adult Discharge ED - Sign-Out/Discharge Documenting (check all that apply): Patient Departure All imaging exams completed and their final reports reviewed: No Studies - Discharge Plan Condition: Stable Disposition: HOME Patient Education Materials: Dermatitis (ED) Referrals: Laura Naidu MD [Primary Care Provider] - Kelly Dunbar [Medical Doctor] - (YOU HAVE AN APPT THIS Wednesday AT 8AM.) Additional Instructions: DO NOT PICK AT YOUR SKIN OR PULL ON YOUR HAIR. I HAVE SCHEDULED AN APPOINTMENT FOR YOU WITH DERMATOLOGY THIS 07/10/2019 AT 8 AM. - Billing Disposition and Condition Condition: STABLE Disposition: Home
== END 2019-07-07 13:27 | disposition home or self-care (01) ==
LOC: UCEAST 12:12
DX: F42.4 Excoriation (skin-picking) disorder (principal); F41.9 Anxiety disorder, unspecified; F32.9 Major depressive disorder, single episode, unspecified; F43.10 Post-traumatic stress disorder, unspecified; Z79.899 Other long term (current) drug therapy; Z88.0 Allergy status to penicillin; Z88.2 Allergy status to sulfonamides; Z88.8 Allergy status to other drugs, medicaments and biological substances; Z87.891 Personal history of nicotine dependence
CPT/HCPCS: 99211; G0463